=== PATIENT | male | born 1995 | race Caucasian/White ===

== ENCOUNTER → 2017-12-24 13:49 | Outpatient (CLI) | payer MEDICAID, SELFPAY ==
[2017-12-24 15:23] LABS: BUN 10 mg/dL (7-18); Creatinine, Serum 0.92 mg/dL (0.70-1.30); EST Glomerular Filtration Rate 106 mL/min (>60); Est Glom Filt Rate - Afr Amer 128 mL/min (>60)
== END ==
PROVIDERS: Family Provider Family Medicine; PCP Family Medicine; Visit Provider Psychiatry & Neurology Neurology
DX: G43.119 Migraine with aura, intractable, without status migrainosus (principal)
CPT/HCPCS: 36415; 82565; 84520

== ENCOUNTER → 2017-12-29 13:30 | Outpatient (CLI) | payer MEDICAID, SELFPAY ==
[2017-12-29 13:32] LABS: Red Blood Cells-Urine 0 SEEN /hpf (0-5); Squamous Epithelial Cells - UA 0 SEEN /hpf (0-5)
[2017-12-29 16:33] LABS: Color, Urine Yellow (Yellow); Glucose, Dipstick Normal (Normal); Ketone-Dipstick Negative (Negative); Leukocyte Esterase-Dipstick 25 /ul (Negative); Nitrite-Dipstick Negative (Negative); Occult Blood-Urine Negative /ul (Negative); Protein-Dipstick 15 mg/dl (Negative); Specific Gravity, Urine 1.025 (1.002-1.030); Urine Bilirubin Dipstick Negative (Negative); Urine Clarity Clear (Clear); Urine Urobilinogen 1 mg/dl (Normal)
[2017-12-29 16:44] LABS: Bacteria 1+ /hpf (None Seen); Calcium Oxalate Crystals Ur 2+ /hpf (<or=2+); Mucous, Urine 2+ /hpf (<or=2+); White Blood Cells 0-5 SEEN /hpf (0-5)
[2017-12-29 20:56] LABS: Chlamydia Trachomatis by PCR Negative (Negative); Neisserai gonorrhoeae by PCR Negative (Negative); Probe Check PASS; Sample Adequacy Control PASS; Specimen Processing Control PASS
== END ==
PROVIDERS: Family Provider Family Medicine; PCP Family Medicine; Visit Provider Family Medicine
DX: N34.2 Other urethritis (principal)
CPT/HCPCS: 81001; 87077; 87086; 87088; 87186; 87491; 87591

== ENCOUNTER → 2018-03-02 13:11 | Outpatient (CLI) | payer MEDICAID, SELFPAY ==
[2018-03-02 15:59] LABS: BUN 11 mg/dL (7-18); EST Glomerular Filtration Rate 109 mL/min (>60); Est Glom Filt Rate - Afr Amer 132 mL/min (>60)
== END ==
PROVIDERS: Family Provider Family Medicine; PCP Family Medicine; Visit Provider Psychiatry & Neurology Neurology
DX: G91.9 Hydrocephalus, unspecified (principal)
CPT/HCPCS: 36415; 82565; 84520

== ENCOUNTER → 2018-04-08 11:03 | Outpatient (CLI) | payer MEDICAID, SELFPAY ==
--- OUTSIDE RECORDS SUMMARY | 2018-05-25 03:40 | XMS RPT_ITS ---
:1995 Author Organization OHIP Support Name Relationship Address Phone ЕКАТЕРИНАEMILI VANEGASNDA Unavailable Unavailable + ALEK BRITO Unavailable Unavailable + ROSIISHROMINA DALE Unavailable Unavailable Unavailable WENDI BRITO/ALEK Unavailable [address] [place] [address] UE Unavailable Unavailable Unavailable ALEK BRITO Unavailable Unavailable + ALEK BRITO Unavailable Unavailable + ЕКАТЕРИНАROMINA DALE Unavailable Unavailable Unavailable WENDI BRITO/ALEK Unavailable [address] + [address] [place] [address] UE Unavailable Unavailable Unavailable ALEK BRITO Unavailable Unavailable + ALEK BRITO Unavailable Unavailable + ЕКАТЕРИНАROMINA DALE Unavailable Unavailable Unavailable ALEK BRITO Unavailable Unavailable + ALEK BRITO Unavailable Unavailable + ЕКАТЕРИНАROMINA DALE Unavailable Unavailable Unavailable WENDI BRITO/ALEK Unavailable [address] + [address] [place] [address] UE Unavailable Unavailable Unavailable WENDI BRITO/ALEK Unavailable [address] + [address] [place] [address] UE Unavailable Unavailable Unavailable WENDI BRITO/ALEK Unavailable [address] + [address] [place] [address] UE Unavailable Unavailable Unavailable AMY BRITO Unavailable Unavailable Unavailable ALEK BRITO Unavailable Unavailable Unavailable ALEK BRITO Unavailable Unavailable Unavailable BOUGHMAN, AMY Unavailable Unavailable Unavailable BOUGHMAN, ALEK Unavailable Unavailable Unavailable BOUGHMAN, ALEK Unavailable Unavailable Unavailable Care Team Providers Name Role Phone JUAN ALBERTO LINDQUIST Attending Unavailable JUAN ALBERTO LINDQUIST Referring Unavailable KIRIT, NUNO Primary Care Unavailable Kenyetta Caldwell Attending Unavailable PROVIDER, UNKNOWN Referring Unavailable Kirit, Nuno Primary Care Unavailable Kenyetta Caldwell Attending Unavailable Kenyetta Caldwell Referring Unavailable Kirit, Nuno Primary Care Unavailable Kirit, Nuno Attending Unavailable Kirit, Nuno Primary Care Unavailable Kirit, Nuno Attending Unavailable Kirit, Nuno Primary Care Unavailable Kirit, Nuno Primary Care Unavailable Tigist Perez Attending Unavailable Kenyetta Caldwell Attending Unavailable Kirit, Nuno Primary Care Unavailable JUAN ALBERTO LINDQUIST Attending Unavailable JUAN ALBERTO LINDQUIST Referring Unavailable KENYETTA CALDWELL MD, JR. Attending Unavailable KIRIT, NUNO Primary Care Unavailable KENYETTA CALDWELL MD, JR. Attending Unavailable KIRIT, NUNO Primary Care Unavailable CARMEN TRIMBLE Attending Unavailable KENYETTA CALDWELL JR. Referring Unavailable KIRIT, NUNO [place] Primary [facility] Unavailable CARMEN TRIMBLE Attending Unavailable CARMEN TRIMBLE Referring Unavailable KIRIT, NUNO A Primary Care Unavailable CARMEN TRIMBLE Attending Unavailable CARMEN TRIMBLE Referring Unavailable KIRIT, NUNO A Primary Care Unavailable EDILBERTO MILTON Attending Unavailable EDILBERTO MILTON Referring Unavailable KIRIT, NUNO A Primary Care Unavailable JUAN ALBERTO LINDQUIST Referring Unavailable CEDRICK MELCHOR (OD) Attending Unavailable CEDRICK MELCHOR (OD) Attending Unavailable YOLANDA JACOBS Attending Unavailable NUNO BETH Primary Care Unavailable NUNO BETH Admitting Unavailable YOLANDA JACOBS Attending Unavailable KIRIT NUNO ARIANA Referring Unavailable KIRIT, NUNO ARIANA Primary Care Unavailable UNKNOWN, PROVIDER Attending Unavailable Kirit, Nuno A Primary Care Unavailable PROBLEMS PROBLEMS DATE TYPE CONDITION / CODE ATTENDING STATUS SOURCE 05/02/2018 Admitting Compression of Jay MILTON [facility] diagnosis brain / EDILBERTO [employer] G93.5(ICD-10) [facility] Repository 04/08/2018 Unknown N39.0 - Urinary Nuno Beth Active [place] tract infection, Community site not specified Hospital / N39.0(ICD-10) Repository 03/07/2018 Admitting Other specified Kenyetta Caldwell Active [facility] Diagnosis disorders of brain System / G93.89(ICD-10) Repository 03/07/2018 Admitting Hydrocephalus, Kenyetta Caldwell Active [facility] Diagnosis unspecified / System G91.9(ICD-10) Repository 12/24/2017 Unknown G43.119 - Migraine Kenyetta Caldwell Active [place] with aura, [facility] Hospital without status Repository migrainosus / G43.119(ICD-10) 11/18/2017 Admitting [facility] diagnosis giddiness / WOLODYM[place] Three R42(ICD-10) Repository 11/18/2017 Admitting Morbid (severe) YOLANDA JACOBS Active [facility] diagnosis obesity due to WOLODYMYR Three excess calories / Repository E66.01(ICD-10) 12/20/2014 Active Essential JUAN ALBERTO LINDQUIST Active [place] [facility] Other hypertension / [place] I10(ICD-10) Repository 05/25/2017 Active 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 E Clinic Other / Q24.4(ICD-10) [place] Repository 12/20/2014 Admitting Unknown / JUAN ALBERTO LINDQUIST Active [facility] diagnosis UNK(Unknown) Health System Repository PROCEDURES PROCEDURES No Procedure Records FoundRESULTS RESULTS 12 LEAD ELECTROCARDIOGRAM Observed: 04/25/2018 Status: F Source: [place] 1:24 PM [facility] REPOSITORY [facility] Cardiovascular Services [address] [place] [address] 12 Lead EKG 04/20/18 1558 MR#: [id number] Acct: [id number] Name: DALE BRITO Rep #: [id number] : 1995 23 From: Madhav Ba MD Attending Dr: Status: DEP ER Ordering Dr: Tigist Perez MD Date: 04/20/18 Location: ED Sex: M C Admitted: Test Reason : CP Blood Pressure : / mmHG Vent. Rate : 076 BPM Atrial Rate : 076 BPM P-R Int : 186 ms QRS Dur : 154 ms QT Int : 410 ms P-R-T Axes : 023 006 162 degrees QTc Int : 461 ms Normal sinus rhythm Left bundle branch block Abnormal ECG Confirmed by JESENIA IBARRA, MADHAV ([id number]), digital editor ADILSON ALCAZAR ([id number]) on 04/25/2018 1:24:07 PM Referred By: LD Confirmed By:MADHAV BA MD 04/25/18 1324 Date Madhav Ba MD CC: Tigist Perez MD; Nuno Beth MD Signed 12 LEAD ELECTROCARDIOGRAM Observed: 04/25/2018 Status: F Source: [place] 1:09 PM [facility] Cardiovascular Services [address] [place] [address] 12 Lead EKG 04/20/18 1549 MR#: [id number] Acct: [id number] Name: DALE BRITO Rep #: [id number] : 1995 23 From: Madhav Ba MD Attending Dr: Status: DEP ER Ordering Dr: Tigist Perez MD Date: 04/20/18 Location: ED Sex: M C Admitted: Test Reason : CP Blood Pressure : / mmHG Vent. Rate : 079 BPM Atrial Rate : 079 BPM P-R Int : 184 ms QRS Dur : 156 ms QT Int : 410 ms P-R-T Axes : 032 006 157 degrees QTc Int : 470 ms Normal sinus rhythm Left bundle branch block Abnormal ECG Confirmed by JESENIA IBARRA, MADHAV ([id number]), digital editor ADILSON ALCAZAR ([id number]) on 04/25/2018 1:09:19 PM Referred By: Confirmed By:MADHAV BA MD 04/25/18 1309 Date Madhav Ba MD CC: Tigist Perez MD; Nuno Beth MD Signed EMERGENCY DEPARTMENT Observed: 04/21/2018 Status: F Source: [place] SUMMARY 12:15 AM [facility] Medical Records Department [address] [place] [address] Emergency Department Summary 04/20/18 1602 MR#: [id number] Acct: [id number] Name: DALE BRITO Rep #: [id number] : 1995 23 From: Tigist Perez MD PCP: Nuno Beth MD Status: DEP ER - ER Visit Summary Date of Service: 04/20/18 Chief Complaint: Chest pain History of Present Illness: The patient is a 23 M who presents for 3 days of substernal chest pain that waxed and wanes in intensity. Pain is described as burning. It is currently mild. Patient has had 2 weeks of fatigue, cough, and dizziness. On April 08 he was placed on Levaquin, once daily for 2 weeks by his primary care doctor. He has had no improvement. Today he has had hemoptysis, which he describes as reddish small masses that he is coughing up. He denies fever, rhinorrhea, congestion, headache, abdominal pain, nausea or vomiting, back pain. No radiation of his pain. He has a history of hypertension, Chiari malformation, open heart surgery at age 1 and a years for ventricular septal defect. Physical Examination: Vital signs: afebrile, hemodynamically stable, no hypoxia on room air General: well nourished, well developed,BMI of 65, in no distress Skin: warm, dry, no rash, no pallor HEENT: normocephalic and atraumatic; PERRL, EOMI, moist mucous membranes Cardiovascular: regular rate and rhythm without murmurs, nonpitting peripheral edema, 2+ pulses all distal extremities Respiratory: Mild increased work of breathing, lungs are clear to auscultation bilaterally, no rales, rhonchi or wheezing, frequent cough Abdominal: Abdomen is soft, nontender with normoactive bowel sounds, no guarding or rebound, no masses MSK: Moves all extremities, no deformities, normal strength Neuro: Awake and alert, oriented 4. No facial droop, sensation and motor function intact and symmetric Test Results: Abnormal Lab Results WBC 11.0 RBC 5.33 Clinical Impression(s) from Imaging Studies Chest X-Ray 04/20/18 17:10 IMPRESSION: No acute pulmonary process Electronically Signed: Rhys Leija MD at 17:55 EST , Service support , Medications Given Discontinued Medications Aspirin (Aspirin, Baby) 324 mg PO X1 STA Stop: 04/20/18 16:01 Last Admin: 04/20/18 16:09 Dose: 324 mg Sodium Chloride () 1,000 mls @ 250 mls/hr IV .Q4H [facility] Last Admin: 04/20/18 16:09 Dose: 250 mls/hr Nitroglycerin (Nitrostat) 0.4 mg SUBLINGUAL Q5M SHAQ Stop: 04/20/18 16:11 Last Admin: 04/20/18 17:42 Dose: Not Given Admin: 04/20/18 17:42 Dose: Not Given Admin: 04/20/18 17:41 Dose: Not Given Prednisone () 60 mg PO X1 ONE Stop: 04/20/18 19:48 Last Admin: 04/20/18 19:59 Dose: 60 mg Emergency Department Course and Treatment: Patient has complaints most consistent with a respiratory illness, however he is now having the chest pain and does have a cardiac history. Thus chest pain workup was performed. EKG showed a left bundle branch block with no ischemic changes per Sgarbossa criteria. He was consistent with patient's prior EKGs. Troponin negative. D-dimer was negative as well. No leukocytosis. No electrolyte derangements. Chest x-ray showed no sign of infiltrate, effusion or pulmonary edema. Patient did receive aspirin upon initial presentation was given nitro per chest pain protocol. He had no change in his discomfort. Patient is already on antibiotics, and with no improvement it is unlikely this is bacterial. Patient was started on prednisone. He is well- appearing, no tachycardia, no tachypnea, no hypoxia. He is to follow-up with his primary care doctor if he continues to have symptoms. Treatment Plan: [] Disposition: [] Impression: Persistent cough, pleuritic chest pain, respiratory infection This note was generated with INTTRA dictation software. It may contain incorrect words, spelling, and punctuation that were not noted in review of the chart prior to signing ED Disposition - Plan for ED Patient: Disposition: Home or Assisted Living Chief Complaint: Chest Pain Instructions: ED Cough Chronic Cause Unkn, ED Chest Pain Atypical Unkn Cause Prescriptions: RX: Prednisone [Deltasone] 60 mg PO DAILY #15 tab Referrals: Nuno Beth MD [Primary Care Provider] - 3-5 Days Additional Instructions: Continue the antibiotic you were given by your family doctor. Take the prednisone once daily as prescribed. Follow-up with your family doctor for another evaluation in 3-5 days, especially if your cough is not improving. Use [id number] pain medication as needed for the chest discomfort. If you have any worsening of your condition or any new concerning symptoms, please return immediately to the emergency department for another evaluation. What to do if you have Problems For any increased pain, shortness of breath, bleeding, nausea or vomiting, chest pain, or any unexpected problems, contact your Primary Care Provider. Call [employer] [facility] ([phone]) or report to the closest Emergency Room. Call 911 if necessary. 04/21/18 0015 <Electronically signed by Tigist Perez MD> Date Tigist Perez MD Cosigner Signature (If Indicated): Date CC: Nuno Beth MD DISCHARGE INSTRUCTION Observed: 04/20/2018 Status: F Source: [place] 10:57 PM [facility] REPOSITORY [facility] Medical Records Department [address] [place] [address] Discharge Instruction 04/20/181947 MR#: [id number] Acct: [id number] Name: DALE BRITO Rep #: [id number] : 1995 23 From: Tigist Perez MD PCP: Nuno Beth MD Status: [facility] ER ED Disposition - Plan for ED Patient: Disposition: Home or Assisted Living Chief Complaint: Chest Pain Instructions: ED Chest Pain Atypical Unkn Cause, ED Cough Chronic Cause Unkn Prescriptions: Prednisone [Deltasone] 60 mg PO DAILY #15 tab Referrals: Nuno Beth MD [Primary Care Provider] - 3-5 Days Additional Instructions: Continue the antibiotic you were given by your family doctor. Take the prednisone once daily as prescribed. Follow-up with your family doctor for another evaluation in 3-5 days, especially if your cough is not improving. Use uxmz-aew-ocjscji pain medication as needed for the chest discomfort. If you have any worsening of your condition or any new concerning symptoms, please return immediately to the emergency department for another evaluation. What to do if you have Problems For any increased pain, shortness of breath, bleeding, nausea or vomiting, chest pain, or any unexpected problems, contact your Primary Care Provider. Call [employer] [facility] ([phone]) or report to the closest Emergency Room. Call 911 if necessary. 04/20/18 0533 <Electronically signed by Tigist Perez MD> Date Tigist Perez MD Cosigner Signature (If Indicated): Date CC: Nuno Beth MD CHEST PA AND LATERAL Observed: 04/20/2018 Status: F Source: [place] 4:02 PM [facility] REPOSITORY [facility] Imaging Services [address] [place] [id number] Chest PA and Lateral MR#: [id number] Acct: [id number] Name: DALE BRITO Rep #: [id number] : 1995 M 23 From: Adelso Leija MD PCP: Nuno Beth MD Status: REG ER Study: Chest PA and Lateral Date of Exam: 04/20/18 Exam# [id number] Ordering Dr: Tigist Perez MD STUDY: X-RAY CHEST REASON FOR EXAM: Male, 23 years old. Chest pain, obesity TECHNIQUE: 2 PA and lateral views of the chest. COMPARISON: 2014 FINDINGS: EKG leads overlie the chest The lungs are clear and expanded. There is no demonstrated pleural abnormality. Sternal cerclage wires are present from a prior sternotomy. Normal mediastinum and hever. Normal visualized pulmonary arteries. Normal visualized aortic arch and descending thoracic aorta. Normal visualized thoracic spine. Normal visualized ribs, clavicles, and shoulders. There is no demonstrated abnormality of the visualized soft tissue structures of the upper abdomen. RAD/Chest PA and Lateral IMPRESSION: No acute pulmonary process Electronically Signed: Rhys Leija MD at 17:55 EST , Service support , CC: Tigist Perez MD; Nuno Beth MD Astronomy Professor: Signed BASIC METABOLIC Collected: 04/20/2018 Status: F Source: [place] PROFILE ([facility]) 3:55 PM [facility] REPOSITORY TYPE CODE TESTS RESULT OUT OF RANGE REFERENCE UNITS LAB L501.0100 74-106 mg/dL Normal GLU 96 Result Comment: Please note revised GLUCOSE reference range effective 2017. LAB L501.1000 7-18 mg/dL High BUN 21 LAB L501.1100 0.70-1.30 mg/dL Normal CREAT,SERUM 0.82 Result Comment: The validity of the calculated GFR AND GFRAA in patients over 70 years has not been determined. Clinical correlation is essential. LAB L501.1110 >60 mL/min Normal EST GFR 121 Result Comment: Non- GFR Calc LAB L501.1115 >60 mL/min Normal EST GFR - AA 147 Result Comment: GFR Calc LAB L501.1255 ml/min Normal Estimated CRCL 133.23 LAB L501.1300 10-20 RATIO High BUN/CRE 25.5 LAB L501.2200 8.5-10 mg/dL .1 CA Normal 8.9 LAB L501.5300 136-14 mmol/L 5 NA Normal 140 LAB L501.5600 3.5-5. mmol/L 1 K Normal 3.9 LAB L501.5900 98-107 mmol/L High CL 110 LAB L501.6100 21.0-3 mmol/L 2.0 CO2 Normal 21.0 LAB L501.6200 5-15 GAP Normal 9 Performed By: #### L500.2500, L501.4010 #### [facility] [address] [place], [place], [id number] TROPONIN-I Collected: 04/20/2018 Status: F Source: [place] 3:55 PM [facility] REPOSITORY TYPE CODE TESTS RESULT OUT OF RANGE REFERENCE UNITS LAB L501.4010 <0.045 ng/mL Normal < 0.015 TROPONIN-I Result Comment: TROPONIN-I EXPECTED VALUES <0.045 Negative 0.045 - 0.590 Consistent with Cardiac Damage > OR = 0.600 Critical Value Not every elevated troponin is indicative of MN. These values should be used with clinical judgement in examining the patient's clinical picture for diagnosis. To establish a diagnosis of MN versus myocardial injury, there must be a demonstrated rise and/or fall in the troponin values, in addition to ischemic symptoms, EKG changes, new regional wall motion abnormality, and/or angiographical evidence. PLEASE NOTE: REFERENCE RANGES EDITED 17 Performed By: #### L500.2500, L501.4010 #### [facility] [address] [place], [place], [address] CBC W/DIFF, AUTOMATED Collected: 04/20/2018 Status: F Source: [place] 3:55 [facility] [place] TYPE CODE TESTS RESULT OUT OF RANGE REFERENCE UNITS LAB L100.1000 4.4-11.0 K/mm3 Normal WBC 11.0 LAB L100.1200 4.6-6.2 M/mm3 Normal RBC 5.33 LAB L100.1300 13.0-16.5 g/dl Normal HGB 14.8 LAB L100.1400 40-54 % Normal HCT 43.8 LAB L100.1500 80-94 fL Normal MCV 82.2 LAB L100.1600 27.0-32.0 pg Normal MCH 27.8 LAB L100.1700 32-36 g/gl Normal MCHC 33.8 LAB L100.1810 11.6-14.6 % Normal RDW CV 13.0 LAB L100.1820 35.1-43.9 fl Normal RDW SD 39.0 LAB L100.1900 150-450 K/mm3 Normal PLT 250 LAB L100.2000 6.2-12.0 fl Normal MPV 8.9 LAB L100.2100 47-70 % Normal NEUT% 56.7 LAB L100.2200 19-41 % Normal LY% 33.8 LAB L100.2300 0-10 % Normal MONO% 8.1 LAB L100.2400 0-5 % Normal EO% 0.7 LAB L100.2500 0-1 % Normal BASO% 0.4 LAB L100.2550 0.0-0.9 % Normal IM GRAN % 0.300 Result Comment: IG% - Immature Granulocytes (promyelocytes, myelocytes and metamyelocytes) > 1% indicates that a LEFT SHIFT is Present. LAB L100.2620 2.0-7.7 X10 3/uL Normal Absolute Neut 6.3 LAB L100.2720 0.83-4.51 X10 3/ul Normal Absolute Lymph 3.73 Performed By: #### L100.0100 #### [facility] [address] [place], [place], [id number] PROTHROMBIN TIME W/INR Collected: 04/20/2018 Status: F Source: [place] 3:55 PM [facility] REPOSITORY TYPE CODE TESTS RESULT OUT OF RANGE REFERENCE UNITS LAB L300.4150 11.7-14.9 SECONDS Normal PROTIME 13.4 LAB L300.4200 Normal INR 1.0 Performed By: #### L300.3900, L300.4310, L300.8000 #### [facility] [address] [facility] [place], [address] PARTIAL THROMBOPLAST Collected: 04/20/2018 Status: F Source: [place] TIME 3:55 PM [facility] REPOSITORY TYPE CODE TESTS RESULT OUT OF RANGE REFERENCE UNITS LAB L300.4310 24.1-36.2 Seconds Normal PTT 27.1 Performed By: #### L300.3900, L300.4310, L300.8000 #### [facility] [address] [place], [address] D-DIMER QUANTITATIVE Collected: 04/20/2018 Status: F Source: [place] (DVT/PE) 3:55 PM [facility] REPOSITORY TYPE CODE TESTS RESULT OUT OF RANGE REFERENCE UNITS LAB L300.8000 0.27-0.49 FEU/ug/m Low D-DIMER < 0.27 QUANT Result Comment: NORMAL D-Dimer level (<0.50) indicates no DVT or PE. NORMAL D-Dimer level (<0.50) indicates no DVT or PE. Performed By: #### L300.3900, L300.4310, L300.8000 #### [facility] [address] [place], [address] Observed: 04/08/2018 Status: F Source: [place] CULTURE, URINE 11:04 AM [facility] REPOSITORY Urine Culture Culture exhibits no growth. Performed By: #### M100.0650 #### [facility] [address] [place], [address] MRI BRAIN W/ + W/O Observed: 03/07/2018 Status: F Source: [employer] CONTRAST 2:09 PM SYSTEM REPOSITORY Patient Name: DALE BRITO MRI Exam Date/Time 03/07/2018 13:53:14 EST Exam MRI Brain w/ + w/o Contrast Ordering Physician KENYETTA CALDWELL Accession Number [id number] CPT4 Codes 65595 () Reason For Exam hydrocephalus Report MRI BRAIN WITHOUT AND WITH CONTRAST: CLINICAL INDICATION: Hydrocephalus TECHNIQUE: Transaxial, sagittal and coronal T1, transaxial fast T2, FLAIR and gradient echo along with diffusion weighted imaging was performed through the brain. Post contrast transaxial and coronal T1 weighted sequences were performed following administration of 20ml gadolinium contrast. COMPARISON: None. FINDINGS: Somewhat limited by the patient's body habitus/positioning and motion. Ventricular system and Extra-axial spaces: Normal in size and morphology for the patient's age. No extracerebral cerebral collection with mass effect. Cerebral and cerebellar parenchyma: Normal land-white matter differentiation. No restricted diffusion. No evidence of intracranial hemorrhage. No enhancing mass or edema. Note is made of low-lying cerebellar tonsils consistent with a Chiari I malformation. Brainstem: Normal. Sella turcica and pituitary: Normal. Vascular system: Normal signal void is noted within the major intracranial vessels. Paranasal sinuses: There is mucosal thickening in both maxillary sinuses.. Mastoid air cells: Normal. Orbits: Normal. IMPRESSION: 1. No acute process. No mass, hemorrhage or edema. 2. Low-lying cerebellar tonsils consistent with a Chiari I malformation. Report Dictated on Workstation: [id number] Final Dictated: 03/07/2018 2:09 pm Dictating Physician: MD LYNN NICHOLAS Signed Date and Time: 03/07/2018 2:18 pm Signed by: MD LYNN NICHOLAS Transcribed Date and Time: 03/07/2018 2:09 BUN Collected: 03/02/2018 Status: F Source: [place] 1:14 PM [facility] REPOSITORY TYPE CODE TESTS RESULT OUT OF RANGE REFERENCE UNITS LAB L501.1000 7-18 mg/dL Normal BUN 11 Performed By: #### L501.1000, L501.1105 #### [facility] [address] [place], [address] SERUM CREATININE AND Collected: 03/02/2018 Status: F Source: [place] GFR 1:14 PM [facility] REPOSITORY TYPE CODE TESTS RESULT OUT OF RANGE REFERENCE UNITS LAB L501.1100 0.70-1.30 mg/dL Normal 0.90 CREAT,SERUM Result Comment: The validity of the calculated GFR AND GFRAA in patients over 70 years has not been determined. Clinical correlation is essential. LAB L501.1110 >60 mL/min Normal EST GFR 109 Result Comment: Non- GFR Calc LAB L501.1115 >60 mL/min Normal EST GFR - AA 132 Result Comment: GFR Calc Performed By: #### L501.1000, L501.1105 #### [facility] [address] 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 Vitreous floaters of both eyes - ICD9: 379.24, ICD10: H43.393 Patient was given both written and verbal information on flashes and floaters. Patient was instructed to call the office ([phone]) immediately upon noticing flashes of light, increase in floaters, or changes in vision. Cedrick Melchor, OD I have confirmed and edited as necessary the relevant ophthalmic history, review of systems, surgical history, and ophthalmological examination findings as obtained by the ophthalmic technical staff. I have seen and examined Dale Brito. I have discussed the examination findings, diagnosis, and treatment options with Dale Brito and/or his family. I have also reviewed and agree with the assessment and plan as stated above and agree with all its relevant components. I gave the patient the opportunity to ask questions about the findings, diagnosis, and treatment options. URINALYSIS, COMPLETE Collected: 12/29/2017 Status: F Source: LUCIA 1:31 PM [facility] REPOSITORY Order Comment: How was Urine Obtained? CLEAN CATCH TYPE CODE TESTS RESULT OUT OF RANGE REFERENCE UNITS LAB L400.3000 Yellow COLOR Normal Yellow LAB L400.3050 Clear Normal CLARITY Clear LAB L400.3200 Normal mg/dl Normal GLUCOSE, UR Normal LAB L400.3300 Negative mg/dL Normal BILIRUBIN URINE Negative LAB L400.3400 Negative mg/dl Normal KETONE UR Negative LAB L400.3465 1.002-1.030 Normal SP.GR. DIPSTX 1.025 LAB L400.3550 5.0 - 8.0 pH UR Normal 5.0 LAB L400.3600 Negative mg/dl High PROT 15 DIPSTX LAB L400.3700 Normal mg/dl High 1 UROBILI LAB L400.3750 Negative Normal NITRITE UR Negative LAB L400.3780 Negative /ul Normal OCCULT BLOOD-UR Negative LAB L400.3800 Negative /ul High LEUK 25 ESTERASE LAB L400.4050 0-5 /hpf WBC Normal 0-5 SEEN LAB L400.4100 0-5 /hpf 0 Normal RBC-UA SEEN LAB L400.4150 0-5 /hpf SQUAM 0 Normal EPI SEEN LAB L400.4300 None Seen /hpf 1+ Normal BACTERIA LAB L400.4350 <or=2+ /hpf 2+ Normal MUCUS, URINE LAB L400.4700 <or=2+ /hpf CA OX 2+ Normal CRYSTAL Performed By: #### L400.0001 #### [facility] [address] [place], [address] CT/NG [facility] BY PCR Collected: 12/29/2017 Status: F Source: [place] 1:31 PM [facility] REPOSITORY TYPE CODE TESTS RESULT OUT OF RANGE REFERENCE UNITS LAB L8200.2100 Negative Normal Chlam Negative Trac PCR LAB L8200.2200 Negative Normal NG by Negative PCR Performed By: #### L8200.2000 #### [facility] [address] [place], [address] Observed: 12/29/2017 Status: F Source: [place] CULTURE, URINE 1:31 PM [facility] REPOSITORY Urine Culture ORGANISM 1: Escherichia coli [place] Count 11,000-25,000 Escherichia coli: REACTION Amoxacillin/Clavulanic Acid $ 16 I Ampicillin $ >=32 R Ampicillin/Sulbactam $ 16 I Cefazolin $ <=4 S Cefepime $ <=1 S Ceftriaxone $ <=1 S Ciprofloxacin $ 0.5 S ESBL - Ertapenim $$$ <=0.5 S Gentamicin $ <=1 S Imipenem *NF <=0.25 S Levofloxacin $ 1 S Nitrofurantoin $ <=16 S Piperacillin/Tazobactam $$ <=4 S Tobramycin $ <=1 S Trimethoprim/Sulfametho $ <=20 S (NF) indicates non-formulary drug at [facility]. Approval by Infectious Disease Specialist required before non-formulary drugs may be ordered and/or dispensed. Performed By: #### M100.0650 #### [facility] [address] [place], [address] BUN Collected: 12/24/2017 Status: F Source: [place] 2:01 PM [facility] REPOSITORY TYPE CODE TESTS RESULT OUT OF RANGE REFERENCE UNITS LAB L501.1000 7-18 mg/dL Normal BUN 10 Performed By: #### L501.1000, L501.1105 #### [facility] [address] [place], [address] SERUM CREATININE AND Collected: 12/24/2017 Status: F Source: [place] GFR 2:01 PM [facility] REPOSITORY TYPE CODE TESTS RESULT OUT OF RANGE REFERENCE UNITS LAB L501.1100 0.70-1.30 mg/dL Normal 0.92 CREAT,SERUM Result Comment: The validity of the calculated GFR AND GFRAA in patients over 70 years has not been determined. Clinical correlation is essential. LAB L501.1110 >60 mL/min Normal EST GFR 106 Result Comment: Non- GFR Calc LAB L501.1115 >60 mL/min Normal EST GFR - AA 128 Result Comment: GFR Calc Performed By: #### L501.1000, L501.1105 #### [facility] [address] 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 Vitreous floaters of both eyes - ICD9: 379.24, ICD10: H43.393 Patient was given both written and verbal information on flashes and floaters. Patient was instructed to call the office ([phone]) immediately upon noticing flashes of light, increase in floaters, or changes in vision. Cedrick Melchor, PRECIOUS I have confirmed and edited as necessary the relevant ophthalmic history, review of systems, surgical history, and ophthalmological examination findings as obtained by the ophthalmic technical staff. I have seen and examined Dale Brito. I have discussed the examination findings, diagnosis, and treatment options with Dale Brito and/or his family. I have also reviewed and agree with the assessment and plan as stated above and agree with all its relevant components. I gave the patient the opportunity to ask questions about the findings, diagnosis, and treatment options. PROGRESS Observed: 05/25/2017 Status: COMPLETED Source: ALLEENE 1:38 PM [facility] REPOSITORY HNO ID: [id number] Author: Juan Alberto Lindquist Service: (none) Author Type: Physician Type: Progress Notes Filed: 05/25/2017 1:49 PM Note Text: PERTINENT CARDIAC HISTORY Subaortic stenosis - resection 1995 Morbid obesity HTN HL BETTY - CPAP DOLAN LBBB ADHERENCE TO GUIDELINES BEKA-I or ARB for HF with prior LVEF<40 (NQF 0081) - N/A ASA or Plavix for ASHD (NQF 0067) - N/A Beta perla for ASHD with prior MN or prior LVEF<40 (NQF 0070) - N/A Beta perla for HF with prior LVEF<40 (NQF 0083) - N/A BEKA-I or ARB for ASHD with DM or prior LVEF<40 (NQF 0066) - N/A Statin therapy for ASHD or FHL or DM - N/A BMI documented and plan if >25 (NQF 0421) - lifestyle recommendation form Tobacco use screening and referral (NQF 0028) - lifestyle recommendation form Recommendation for whole food, plant based diet - lifestyle recommendation form CLINICAL IMPRESSION/PLAN: Dale Brito has stable, but limited exercise tolerance. His chest pain syndrome is under good control. Blood pressure was borderline high today. I've requested that he have this checked in the home environment. His dose of diltiazem is relatively low and can easily be increased. He has achieved no significant weight loss over the last several years. If he wishes to pursue bariatric surgery, I recommend further risk stratification with pharmacologic nuclear stress test. I am unable to assess his exercise tolerance due to his inactivity. For follow-up of his residual membranous subaortic stenosis, he will undergo echocardiogram. TSH and lipid profile will be obtained. We will continue to follow him at annual intervals. He has been strongly advised to decrease his caloric intake and increase energy expenditure. Written and verbal health teaching given to patient, patient verbalizes understanding and agrees with treatment plan. This note was generated using INTTRA voice recognition system, and there may be some incorrect words, spellings, and punctuation that were not noted in checking the note before saving. DIAGNOSIS FOR VISIT: Subaortic stenosis with residual Hypertension Super morbid obesity HISTORY OF PRESENT ILLNESS Dale Brito is a 22-year-old gentleman with multiple cardiac issues, as noted above. He has a prior patient of Dr. Mishra. He is seen for follow-up. He was recently diagnosed with a Chiari malformation . He has not pursued bariatric surgery . He reports that his exercise tolerance has been stable. He is not walking on a regular basis. He's had no significant weight loss. He's had minimal chest discomfort since last visit. Breathing is improved since his inhaler has been changed. He's had no syncope, palpitations, TIAs, amaurosis or claudication. ALLERGIES: ALLERGIES Allergen Reactions - Phenobarbital Shortness of Breath - Penicillins Rash CURRENT OUTPATIENT MEDICATIONS: CARTIA XT 120 mg 24 hr capsule Take 1 capsule by mouth once daily. PAST MEDICAL HISTORY Diagnosis Date - Headache(784.0) - HTN (hypertension) - Pain in limb 06/26/2008 - PMH - PAST MEDICAL HISTORY OF Aortic Stenosis - PMH - PAST MEDICAL HISTORY OF Heart murmur - Seasonal allergies - Sleep apnea unable to use c-pap - Unspecified asthma(493.90) PAST SURGICAL HISTORY Procedure Laterality Date - PAST SURGICAL HISTORY OF 1994 Open heart, [facility], for Subaortic Stenosis - REMOVAL ADENOIDS,PRIMARY,<12 Y/O 2006 Adenoidectomy FAMILY HISTORY Problem Relation Age of Onset - Diabetes Father - Hypertension Father - Cancer Father smoker/ throat - Hypertension Mother - Coronary Artery Disease Maternal Grandfather [place] age 42, autopsy-proven - No Ocular Disease Other - gout [Other] [OTHER] Mother - headaches [Other] [OTHER] Brother - sleep apnea [Other] [OTHER] Brother - htn [Other] [OTHER] Brother Social History Marital status: Single Spouse name: Years of education: Number of children: Occupational 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 Respiratory: No productive cough. Cardiac: As noted above. GI: No melena. : No dysuria. Musculoskeletal: No myalgias. PHYSICAL EXAMINATION: S/he is alert and in no distress. VITAL SIGNS: BP 142/90 Pulse 70 Ht 5' 6 (1.68m) Wt 486 lb (220.4kg) BMI 78.48 kg/(m2). SHEENT: Skin is warm and dry. No xanthelasmas appreciated. Pharynx is benign. There is no oral cyanosis. Neck: supple. No adenopathy or thyroid enlargement. Chest: Clear to percussion and auscultation. Trachea is midline. Air entry is equal. There is no chest wall tenderness. Cardiac: Regular rhythm. Splitting of the second heart sound cannot be detected. PMI is nondisplaced. There is a soft systolic ejection murmur. No click is heard. Carotids are brisk without bruits. JVP is less than 10 cm. Abdomen: Morbid obesity precludes examination. There are no pulsatile masses or bruits. No liver enlargement. Bowel sounds are active. Extremities: 1 plus edema. Pulses are intact and symmetrical. No clubbing or cyanosis. No femoral bruits. Neurologic: Grossly normal motor and sensory. S/he is alert and oriented x4. EKG shows left bundle branch block. There is no significant change. Prior echo shows well-preserved LV function. There is mild fixed subaortic gradient. Prior Holter monitor showed no significant arrhythmia. Laboratory studies from [facility] showed normal renal function. Electronically Signed: Juan Alberto Lindquist MD May 25, 2017 1:38 PM CC:Nnuo Beth MD CNOV Observed: 05/25/2017 Status: COMPLETED Source: ALLEENE 1:00 PM [facility] REPOSITORY Office Visit (AGCARDWST) DALE BRITO ([id number]) 1995 M Date Time Provider Department 05/25/17 1:00 PM JUAN ALBERTO LINDQUIST AGCARDWSFlora During your visit today, we recorded the following information about you: Pulse Blood pressure Weight Height 70/minute 142/90 220.4 kg 1.676 m Juan Alberto Lindquist MD 05/25/2017 1:49 PM Signed PERTINENT CARDIAC HISTORY Subaortic stenosis - resection 1994 Morbid obesity HTN HL BETTY - CPAP DOLAN LBBB ADHERENCE TO GUIDELINES BEKA-I or ARB for HF with prior LVEFANDlt;40 (NQF 0081) - N/A ASA or Plavix for ASHD (NQF 0067) - N/A Beta perla for ASHD with prior MN or prior LVEFANDlt;40 (NQF 0070) - N/A Beta perla for HF with prior LVEFANDlt;40 (NQF 0083) - N/A BEKA-I or ARB for ASHD with DM or prior LVEFANDlt;40 (NQF 0066) - N/A Statin therapy for ASHD or FHL or DM - N/A BMI documented and plan if ANDgt;25 (NQF 0421) - lifestyle recommendation form Tobacco use screening and referral (NQF 0028) - lifestyle recommendation form Recommendation for whole food, plant based diet - lifestyle recommendation form CLINICAL IMPRESSION/PLAN: Dale Brito has stable, but limited exercise tolerance. His chest pain syndrome is under good control. Blood pressure was borderline high today. I've requested that he have this checked in the home environment. His dose of diltiazem is relatively low and can easily be increased. He has achieved no significant weight loss over the last several years. If he wishes to pursue bariatric surgery, I recommend further risk stratification with pharmacologic nuclear stress test. I am unable to assess his exercise tolerance due to his inactivity. For follow-up of his residual membranous subaortic stenosis, he will undergo echocardiogram. TSH and lipid profile will be obtained. We will continue to follow him at annual intervals. He has been strongly advised to decrease his caloric intake and increase energy expenditure. Written and verbal health teaching given to patient, patient verbalizes understanding and agrees with treatment plan. This note was generated using INTTRA voice recognition system, and there may be some incorrect words, spellings, and punctuation that were not noted in checking the note before saving. DIAGNOSIS FOR VISIT: Subaortic stenosis with residual Hypertension Super morbid obesity HISTORY OF PRESENT ILLNESS Dale Brito is a 22-year-old gentleman with multiple cardiac issues, as noted above. He has a prior patient of Dr. Mishra. He is seen for follow-up. He was recently diagnosed with a Chiari malformation . He has not pursued bariatric surgery . He reports that his exercise tolerance has been stable. He is not walking on a regular basis. He's had no significant weight loss. He's had minimal chest discomfort since last visit. Breathing is improved since his inhaler has been changed. He's had no syncope, palpitations, TIAs, amaurosis or claudication. ALLERGIES: ALLERGIES Allergen Reactions - Phenobarbital Shortness of Breath - Penicillins Rash CURRENT OUTPATIENT MEDICATIONS: CARTIA XT 120 mg 24 hr capsule Take 1 capsule by mouth once daily. PAST MEDICAL HISTORY Diagnosis Date - Headache(784.0) - HTN (hypertension) - Pain in limb 06/26/2008 - PMH - PAST MEDICAL HISTORY OF Aortic Stenosis - PMH - PAST MEDICAL HISTORY OF Heart murmur - Seasonal allergies - Sleep apnea unable to use c-pap - Unspecified asthma(493.90) PAST SURGICAL HISTORY Procedure Laterality Date - PAST SURGICAL HISTORY OF 1994 Open heart, [facility], for Subaortic Stenosis - REMOVAL ADENOIDS,PRIMARY,ANDlt;10 Y/O 2006 Adenoidectomy FAMILY HISTORY Problem Relation Age of Onset - Diabetes Father - Hypertension Father - Cancer Father smoker/ throat - Hypertension Mother - Coronary Artery Disease Maternal Grandfather [place] age 42, autopsy-proven - No Ocular Disease Other - gout [Other] [OTHER] Mother - headaches [Other] [OTHER] Brother - sleep apnea [Other] [OTHER] Brother - htn [Other] [OTHER] Brother Social History Marital status: Single Spouse name: Years of education: Number of children: Occupational 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 Respiratory: No productive cough. Cardiac: As noted above. GI: No melena. : No dysuria. Musculoskeletal: No myalgias. PHYSICAL EXAMINATION: S/he is alert and in no distress. VITAL SIGNS: BP 142/90 Pulse 70 Ht 5' 6ANDquot; (1.68m) Wt 486 lb (220.4kg) BMI 78.48 kg/(m2). SHEENT: Skin is warm and dry. No xanthelasmas appreciated. Pharynx is benign. There is no oral cyanosis. Neck: supple. No adenopathy or thyroid enlargement. Chest: Clear to percussion and auscultation. Trachea is midline. Air entry is equal. There is no chest wall tenderness. Cardiac: Regular rhythm. Splitting of the second heart sound cannot be detected. PMI is nondisplaced. There is a soft systolic ejection murmur. No click is heard. Carotids are brisk without bruits. JVP is less than 10 cm. Abdomen: Morbid obesity precludes examination. There are no pulsatile masses or bruits. No liver enlargement. Bowel sounds are active. Extremities: 1 plus edema. Pulses are intact and symmetrical. No clubbing or cyanosis. No femoral bruits. Neurologic: Grossly normal motor and sensory. S/he is alert and oriented x4. EKG shows left bundle branch block. There is no significant change. Prior echo shows well-preserved LV function. There is mild fixed subaortic gradient. Prior Holter monitor showed no significant arrhythmia. Laboratory studies from [facility] showed normal renal function. Electronically Signed: Juan Alberto Lindquist MD May 25, 2017 1:38 PM CC:Nuno Beth MD Referring Provider: JUAN ALBERTO LINDQUIST [[id number]] Allergies As of Date: 05/25/2017 Noted Allergy Reaction PHENOBARBITAL 04/04/2008 12 - Shortness of Breath PENICILLINS 04/04/2008 2 - Rash Date Reviewed: 05/25/2017 Reviewed by: Bobby (Rn) EULALIO Davenport - Fully Assessed Reason for Visit: New Patient [172] Primary Visit Diagnosis:Subaortic stenosis [Q24.4] Other Visit Diagnosis:Essential hypertension [I10] Order(s):ECG B/O W INTERP (MED OFFICE) [ECG06] Order #: [id number] CARTIA XT 120 mg 24 hr capsuleTake 1 capsule by mouth once daily.Disp: Rfl: ECHO [327764] Order #: [id number]: 1 FUTURE TSH BLD [SQTSH] Order #: [id number] FUTURE LIPID PANEL BASIC [SQLIPB] Order #: [id number] FUTURE Prescriptions as of 05/25/2017 Sig: CARTIA XT 120 MG CAPSULE,EXTE* Take 1 capsule by mouth once * Problem List As Of Date 05/25/2017 Noted Resolved Morbid obesity [E66.01] INVALID FOR* Priority: B More... MEMBRANOUS SUB-AORTIC STENOSIS [I35.9] INVALID FOR* Priority: A More... More... Depressive disorder, not elsewhere classified [*INVALID FOR* Priority: A More... Family history of other cardiovascular diseases*INVALID FOR* Priority: F More... Problems with learning [F81.9] INVALID FOR* Priority: B More... LBBB (left bundle branch block) [I44.7] INVALID FOR* Priority: A More... Headache(784.0) [R51] INVALID FOR* Priority: A Dyslipidemia (high LDL; low HDL) [E78.5] INVALID FOR* Priority: A BETTY (obstructive sleep apnea) [G47.33] INVALID FOR* Priority: B More... Pseudotumor cerebri [G93.2] INVALID FOR* Priority: B SVT (supraventricular tachycardia) (HCC) [I47.1]INVALID FOR* Priority: A More... Cephalalgia [R51] INVALID FOR* Essential hypertension [I10] INVALID FOR* Priority: A Vitreous floaters of both eyes [H43.393] INVALID FOR* Morbid obesity with BMI of 60.0-69.9, adult (HC*INVALID FOR* Congenital anomaly of optic disc [Q14.2] INVALID FOR* Prescriptions ordered this encounter Disp Refills Start End CARTIA XT 120 MG CAPSULE,EXTENDED RE* 05/25/2017 Class: Med Update Route: ORAL Sig: Take 1 capsule by mouth once daily. Medications Discontinued During This Encounter fexofenadine (TRISH) 180 mg tablet 11/11/2016 05/25/2017 Class: Historical Med Sig: Disc: Reason for discontinue is not on file. ranitidine (ZANTAC) 150 mg tablet 12/01/2016 05/25/2017 Class: Historical Med Sig: Disc: Reason for discontinue is not on file. ondansetron orally disintegrating (Z* 12/01/2016 05/25/2017 Class: Historical Med Sig: Disc: Reason for discontinue is not on file. CARTIA XT 120 mg 24 hr capsule 11/11/2016 05/25/2017 Class: Historical Med Sig: Disc: Reason for discontinue is not on file. Classic SmartForms filed during this visit: Extended Vitals Encounter Status:Closed by JUAN ALBERTO LINDQUIST MD on 05/25/17 ALLERGIES ALLERGIES DATE TYPE / NAME / CODE REACTION SEVERITY SOURCE CODE 11/18/[address]: IODINATED [facility] Class/4195 CONTRAST- ORAL AND Three Repository 77285(SNOM IV DYE ED CT) 04/27/2017 Drug Penicillins/[id number] Hives Unknown [place] Allergy/41 476(RXNORM) Community 0962190([facility] OMED CT) Repository 04/27/2017 Drug phenobarbital/F0060 Shortness of Unknown [place] Allergy/41 82560(RXNORM) breath Community 1979880( Hospital OMED CT) Repository 04/04/2008 DRUG PHENOBARBITAL Sob High [facility] INGREDI/41 Three Repository 0913621( OMED CT) 04/04/2008 Drug PENICILLINS Rash Low [facility] Class/4195 Three Repository 79826(SNOM ED CT) 04/04/2008 DRUG PHENOBARBITAL SHORTNESS OF Med [facility] INGREDI/41 Other [place] 7990496( Repository OMED CT) 04/04/2008 Drug PENICILLINS RASH [facility] Class/4195 Other [place] 45418(SNOM Repository ED CT) NG/1514157 PHENOBARBITAL [facility] 06(SNOMED [facility] CT) Repository NG/5509387 PENICILLINS [facility] 06(SNOMED [facility] CT) Repository ENCOUNTERS ENCOUNTERS ADMIT/DISCHARGE ACCOUNT NUMBER ADMITTING ENCOUNTER LOCATION SOURCE CLASS 05/02/2018 [id number] Ambulatory Building:[facility] Repository 04/20/2018/04/20/20 [id number] Emergency [address] ding:ED Repository 04/20/2018 [id number] Ambulatory Building:[facility] Repository 04/08/2018 [id number] Ambulatory [facility] ding:BFHLAB Repository 04/06/2018 [id number] Ambulatory Building:[facility] Repository 03/07/2018 [id number] Ambulatory [facility] Repository 03/07/2018 [id number] Ambulatory Building:[facility] Repository 03/02/2018 [id number] Ambulatory [facility] ding:BFHLAB Repository 12/31/2017 [id number] Ambulatory [facility] Repository ng:H.MRI 12/30/2017/01/04/20 [id number] Ambulatory [address] Main [place] Repository 12/29/2017 [id number] Ambulatory [facility] ding:BFHLAB Repository 12/24/2017 [id number] Ambulatory [facility] ding:LAB Repository 11/18/2017/11/19/19 [id number] KIRIT, Ambulatory Building:[address] NEUROSURGGLE Three SSNER Repository 08/27/2017 [id number] Ambulatory Building:[facility] NEUROLOGYGLE Three [facility]NER Repository 08/05/2017/08/06/19 [id number] Ambulatory MATEO Mateo [address] [place] [address] ding:[facility] Repository 06/29/2017/07/01/19 [id number] Ambulatory [address] Repository 06/17/2017/06/17/19 [id number] Ambulatory MATEO Mateo [address] [place] [address] [facility] 05/25/2017/05/27/19 [id number] Ambulatory [address] Main [place] Repository 05/25/2017/05/25/19 [id number] Ambulatory [address] Other [place] Repository 05/25/2017/05/25/19 [id number] Ambulatory [address] MEDICAL Repository CENTERBuildi ng:CAGWS PAYERS PAYERS ENCOUNTER GUARANTOR PAYER SUBSCRIBER SOURCE 05/02/2018 DALE Primary DALE [facility] BOUGHMANDOB: [facility] [place] [id number] [facility] Number: [id number] [id number] [address] [address]Ohv: ([phone]) Date:4917-30-09Pzgp [place] [address]Eev: Repository [phone] () Name:JAVED () 04/20/2018 DALE BRIANNA Primary [id number] SR [facility]: [address] Number: [id number] [id number] Repository [address]Dmj: ([phone]) Date:2018-04-20P O [phone] () [address]ATTN: [place] [address]XQ: 04/20/2018 Secondary NOT GIVENUNK [place] Insurance:SELF PAY [facility] Number: Effective Repository Date:2018-04-20 04/20/2018 DALE Primary DALE [facility] BOUGHMANDOB: Insurance:CARESOURCEP [place]: [place] [id number] BOX olicy Number: [id number] [id number] [address] [address]Rbz: [phone]) Date:9518-62-80[place]vyc [place] [address]Ybc: Repository [phone] () Name:JAVED () 04/08/2018 DALE E Primary DALE E [place] [facility] O Box Insurance:CARESOURCEP [facility] [address] Number: [id number] [address]Qox: 330 [id number] Repository [phone] () Date:2018-04-08P [address]ATTN: [place] [address]VN: 04/08/2018 Secondary NOT GIVENUNK [place] Insurance:SELF PAY [facility] Number: Effective Repository Date:2018-04-08 04/06/2018 DALE Primary DALE [facility] BOUGHMANDOB: Insurance:CARESOURCEP [place]: [place] [id number] BOX olic Number: [id number] [id number] [address] [address]Sfb: ([phone]) Date:0378-92-30[place] [address]Xez: Repository [phone] () Name:JAVED () 03/07/2018 Dale Primary [facility] BoughmanDOB: Insurance:CareSourceP BoughmanDOB: System 1995[address] Number: [id number] [address]ository [address], Effective Date: [place] [address]Fim: () 03/07/2018 DALE Primary DALE [facility]: Insurance:[facility]IDRussell[facility] HospitalOB: [place] [id number] BOX icy Number: [id number] [address] [id number] [address] [address]Gzq: ([phone]) Date:Plan Name:[place] [id number]: Repository [phone] (HP) (HP) 03/02/2018 DALE E Primary DALE E Lucia BOUGHMANP O Box Insurance:CARESOURC BOUNIVERSITY [facility] CENTEROB: [address] olicy Number: [id number] [facility] [address]Ujs: 330 [id number] Repository [phone] () Date:2018-03-02 [address]ATTN: [place] [address]ZK: 03/02/2018 Secondary NOT GIVENUNK Lucia Insurance:SELF PAY [facility] Number: Effective Repository Date:2018-03-02 12/31/2017 DALE E Primary [facility] BOX Insurance:[facility] [id number] SR olicy Number: Repository [address], [place] [id number]: ([phone]) Date:2013-09-24[id number] () [address] [place] [address]CX: 12/29/2017 DALE E Primary DALE E Lucia BOUGHMANP O Box Insurance:CARESOURCEP [facility]OUGHMCLAREN [facility]ATER [facility]ANS[facility] HOSPITALOB: [address] olicy Number: [id number] Hospital [id number]: 330 [id number] Repository [phone] () Date:2017-12-29P [address]ATTN: [place] [address]OF: 12/29/2017 Secondary NOT GIVENUNK Lucia Insurance:SELF PAY [facility] Number: Effective Repository Date:2017-12-29 12/24/2017 DALE E Primary DALE E [place] [facility] O Box Insurance:CARESOURCEP BOUGHMANDOB: Community [address] [place] [address] Number: [id number] Hospital [address]Uno: [phone]) [id number] Repository [phone] () Date:2017-12-24 O [facility] 8730ATTN: [place] [address]ZI: 12/24/2017 Secondary NOT GIVENUNK Lucia Insurance:SELF PAY [facility] Number: Effective Repository Date:2017-12-24 11/18/2017 DALE Primary DALE [facility] BOUGHMANDOB: Insurance:CARESOURCE BOUGHMANDOB: Three Repository [id number] BOX MANAGED [id number] [address] [place] [address] [address]Brc: (330) Number: [address], [place] [phone] () [id number] [phone] Date:[id number] [address]RC: 08/27/2017 DALE Primary DALE [facility] BOUGHMANDOB: Insurance:CARESOURCE BOUGHMANDOB: Three Repository [id number] BOX MANAGED [id number] [address] [place] [address] [address]Clq: 330) Number: [address], [place] [phone] () [id number] [phone] Date:[id number] [address] [address]NX: 08/05/2017 DALE E Primary DALE [facility] BOUGHMANDOB: Insurance:CARESOURCE BOUGHMANDOB: [facility] 1995 o MEDICAIDPolicy [id number] o Repository [address], Number: [place] [address]Qkd: [id number] [place] [address]Gyz: Date:2017-08-05 - (HP) [id number] (HP)Tel: [phone]) Name:PINA Rowe 000-0000 (WP) [address] [place] [address]FV: 06/17/2017 DALE E Primary DALE E [facility] Insurance:[facility]OCAROLINAEAST MEDICAL CENTEROB: [facility] 1995 o MEDICAIDPolicy [id number] o Repository [address], Number: [place] [address]Bqt: [id number] [place] [address]Qhy: Date:2017-06-17 - (HP) [id number] (HP)Tel: [phone]) Name:PINA Rowe 000-0000 (WP) [address] [place] [address]MP: 05/25/2017 DALE E Primary DALE E [facility] [id number] BOX MEDICAIDPolicy [id number] Repository [place], [place] Number: [id number]: 330 [id number] [phone] () Date:
== END ==
PROVIDERS: Family Provider Family Medicine; PCP Family Medicine; Visit Provider Family Medicine
DX: N39.0 Urinary tract infection, site not specified (principal)
CPT/HCPCS: 36415; 87086

== ENCOUNTER 2018-04-20 15:45 | Emergency (ER) | payer MEDICAID, SELFPAY ==
[2018-04-20 15:45] VITALS: BP 146/103; PULSE 81; RESP 16; TEMP 36.7; O2SAT 97; BMI 65.0
--- NOTE | 2018-04-20 15:58 | EKG12_ITS ---
Test Reason : CP Blood Pressure : / mmHG Vent. Rate : 076 BPM Atrial Rate : 076 BPM P-R Int : 186 ms QRS Dur : 154 ms QT Int : 410 ms P-R-T Axes : 023 006 162 degrees QTc Int : 461 ms Normal sinus rhythm Left bundle branch block Abnormal ECG Confirmed by JESENIA IBARRA, HILTON ([id number]), copy editor ADILSON ALCAZAR ([id number] on 04/25/2018 1:24:07 PM Referred By: FERNANDO Confirmed By:HILTON BA MD
[2018-04-20 16:00] VITALS: O2SAT 97
--- NOTE | 2018-04-20 16:00 | EKG12_ITS ---
Test Reason : CP Blood Pressure : / mmHG Vent. Rate : 079 BPM Atrial Rate : 079 BPM P-R Int : 184 ms QRS Dur : 156 ms QT Int : 410 ms P-R-T Axes : 032 006 157 degrees QTc Int : 470 ms Normal sinus rhythm Left bundle branch block Abnormal ECG Confirmed by JESENIA IBARRA, HILTON ([id number]), supervising film or videotape editor ADILSON ALCAZAR ([id number] on 04/25/2018 1:09:19 PM Referred By: Confirmed By:HILTON BA MD
--- NOTE | 2018-04-20 16:04 | ED.DCSUM_ITS ---
- ER Visit Summary Date of Service: 04/20/18 Chief Complaint: Chest pain History of Present Illness: The patient is a 23 M who presents for 3 days of substernal chest pain that waxed and wanes in intensity. Pain is described as burning. It is currently mild. Patient has had 2 weeks of fatigue, cough, and dizziness. On April 08 he was placed on Levaquin, once daily for 2 weeks by his primary care doctor. He has had no improvement. Today he has had hemoptysis, which he describes as reddish small masses that he is coughing up. He denies fever, rhinorrhea, congestion, headache, abdominal pain, nausea or vomiting, back pain. No radiation of his pain. He has a history of hypertension, Chiari malformation, open heart surgery at age 1 and [age] years for ventricular septal defect. Physical Examination: Vital signs: afebrile, hemodynamically stable, no hypoxia on room air General: well nourished, well developed,BMI of 65, in no distress Skin: warm, dry, no rash, no pallor HEENT: normocephalic and atraumatic; PERRL, EOMI, moist mucous membranes Cardiovascular: regular rate and rhythm without murmurs, nonpitting peripheral edema, 2+ pulses all distal extremities Respiratory: Mild increased work of breathing, lungs are clear to auscultation bilaterally, no rales, rhonchi or wheezing, frequent cough Abdominal: Abdomen is soft, nontender with normoactive bowel sounds, no guarding or rebound, no masses MSK: Moves all extremities, no deformities, normal strength Neuro: Awake and alert, oriented ?4. No facial droop, sensation and motor function intact and symmetric Test Results: Abnormal Lab Results 04/20/18 04/20/18 04/20/18 15:55 15:55 15:55 WBC 11.0 RBC 5.33 Hgb 14.8 Hct 43.8 MCV 82.2 MCH 27.8 MCHC 33.8 RDW 13.0 RDW Differential 39.0 Plt Count 250 MPV 8.9 Immature Gran % (Auto) 0.300 Neut % (Auto) 56.7 Lymph % (Auto) 33.8 [place] % (Auto) 8.1 Eos % (Auto) 0.7 Baso % (Auto) 0.4 Absolute Neuts (auto) 6.3 Absolute Lymphs (auto) 3.73 Total Counted Not Reportable PT 13.4 INR 1.0 APTT 27.1 D-Dimer Quant (PE/DVT) < 0.27 L Sodium 140 Potassium 3.9 Chloride 110 H Carbon Dioxide 21.0 Anion Gap 9 BUN 21 H Creatinine 0.82 Estim Creat Clear Calc 133.23 Est GFR (MDRD) Af Amer 147 Est GFR (MDRD) Non-Af 121 BUN/Creatinine Ratio 25.5 H Glucose 96 Calcium 8.9 Troponin I < 0.015 Clinical Impression(s) from Imaging Studies Chest X-Ray 04/20/18 17:10 IMPRESSION: No acute pulmonary process Electronically Signed: Rhys Leija MD at 17:55 EST , Service support , Medications Given Discontinued Medications Aspirin (Aspirin, Baby) 324 mg PO X1 STA Stop: 04/20/18 16:01 Last Admin: 04/20/18 16:09 Dose: 324 mg Sodium Chloride () 1,000 mls @ 250 mls/hr IV .Q4H [facility] Last Admin: 04/20/18 16:09 Dose: 250 mls/hr Nitroglycerin (Nitrostat) 0.4 mg SUBLINGUAL Q5M SHAQ Stop: 04/20/18 16:11 Last Admin: 04/20/18 17:42 Dose: Not Given Admin: 04/20/18 17:42 Dose: Not Given Admin: 04/20/18 17:41 Dose: Not Given Prednisone () 60 mg PO X1 ONE Stop: 04/20/18 19:48 Last Admin: 04/20/18 19:59 Dose: 60 mg Emergency Department Course and Treatment: Patient has complaints most consistent with a respiratory illness, however he is now having the chest pain and does have a cardiac history. Thus chest pain workup was performed. EKG showed a left bundle branch block with no ischemic changes per Sgarbossa criteria. He was consistent with patient's prior EKGs. Troponin negative. D- dimer was negative as well. No leukocytosis. No electrolyte derangements. Chest x-ray showed no sign of infiltrate, effusion or pulmonary edema. Patient did receive aspirin upon initial presentation was given nitro per chest pain protocol. He had no change in his discomfort. Patient is already on antibiotics, and with no improvement it is unlikely this is bacterial. Patient was started on prednisone. He is well-appearing, no tachycardia, no tachypnea, no hypoxia. He is to follow-up with his primary care doctor if he continues to have symptoms. Treatment Plan: [] Disposition: [] Impression: Persistent cough, pleuritic chest pain, respiratory infection This note was generated with [employer] dictation software. It may contain incorrect words, spelling, and punctuation that were not noted in review of the chart prior to signing ED Disposition - Plan for ED Patient: Disposition: Home or Assisted Living Chief Complaint: Chest Pain Instructions: ED Cough Chronic Cause Unkn, ED Chest Pain Atypical Unkn Cause Prescriptions: RX: Prednisone [Deltasone] 60 mg PO DAILY #15 tab Referrals: Nuno Beth MD [Primary Care Provider] - 3-5 Days Additional Instructions: Continue the antibiotic you were given by your family doctor. Take the prednisone once daily as prescribed. Follow-up with your family doctor for another evaluation in 3-5 days, especially if your cough is not improving. Use [id number] pain medication as needed for the chest discomfort. If you have any worsening of your condition or any new concerning symptoms, please return immediately to the emergency department for another evaluation.
[2018-04-20] MEDS: Aspirin 81 MG TAB.CHEW 324 MG PO (16:09)
[2018-04-20] MEDS: 0.9% Normal Saline 1,000 ML 250 ML IV (16:09)
[2018-04-20 16:23] LABS: Prothrombin Time (Protime)PT. 13.4 SECONDS (11.7-14.9)
[2018-04-20 16:24] LABS: Partial Thromboplast Time 27.1 Seconds (24.1-36.2)
[2018-04-20 16:25] LABS: Anion Gap 9 (5-15); BUN 21 mg/dL (7-18); BUN/Creat Ratio 25.5 RATIO (10-20); Calcium,Total 8.9 mg/dL (8.5-10.1); Chloride 110 mmol/L (98-107); Creatinine, Serum 0.82 mg/dL (0.70-1.30); EST Glomerular Filtration Rate 121 mL/min (>60); Est Glom Filt Rate - Afr Amer 147 mL/min (>60); Estimated Creatinine Clearance 133.23 ml/min; Glucose 96 mg/dL (74-106); Potassium 3.9 mmol/L (3.5-5.1); Sodium Level 140 mmol/L (136-145)
[2018-04-20 16:31] LABS: Absolute Lymphocyte Count 3.73 X10^3/ul (0.83-4.51); Absolute Neutrophil Count 6.3 X10^3/uL (2.0-7.7); Basophil# 0.04 X10^3/uL; Basophil% 0.4 % (0-1); Eosinophil# 0.08 X10^3/uL; Eosinophils% 0.7 % (0-5); Hematocrit 43.8 % (40-54); Hemoglobin 14.8 g/dl (13.0-16.5); Lymphocyte # 3.73 X10^3/ul (4.0); Lymphocyte % 33.8 % (19-41); Mean Corp Hgb Conc 33.8 g/gl (32-36); Mean Corpuscular Hgb 27.8 pg (27.0-32.0); Mean Corpuscular Volume 82.2 fL (80-94); Mean Platelet Vol. 8.9 fl (6.2-12.0); Monocyte# 0.89 X10^3/uL; Monocyte% 8.1 % (0-10); Neutrophil # 6.26 X10^3/uL (2.7-7.7); Neutrophil % 56.7 % (47-70); Platelet Count 250 K/mm3 (150-450); Red Blood Count 5.33 M/mm3 (4.6-6.2)
[2018-04-20 16:34] LABS: POSITIVE COUNT NO; POSITIVE DIFFERENTIAL NO; POSITIVE MORPHOLOGY NO
[2018-04-20 16:44] LABS: D-Dimer Quantitative (DVT/PE) < 0.27 FEU/ug/m (0.27-0.49)
--- NOTE | 2018-04-20 17:10 | RAD_ITS ---
STUDY: X-RAY CHEST REASON FOR EXAM: Male, 23 years old. Chest pain, obesity TECHNIQUE: 2 PA and lateral views of the chest. COMPARISON: 2014 FINDINGS: EKG leads overlie the chest The lungs are clear and expanded. There is no demonstrated pleural abnormality. Sternal cerclage wires are present from a prior sternotomy. Normal mediastinum and hever. Normal visualized pulmonary arteries. Normal visualized aortic arch and descending thoracic aorta. Normal visualized thoracic spine. Normal visualized ribs, clavicles, and shoulders. There is no demonstrated abnormality of the visualized soft tissue structures of the upper abdomen. RAD/Chest PA and Lateral IMPRESSION: No acute pulmonary process Electronically Signed: Rhys Leija MD at 17:55 EST , Service support ,
[2018-04-20 17:41] VITALS: BP 128/97; PULSE 70; RESP 19; O2SAT 98
[2018-04-20 19:00] VITALS: BP 148/79; PULSE 73; RESP 20; O2SAT 98
[2018-04-20 19:25] VITALS: PULSE 64; RESP 23; TEMP 36.8; O2SAT 100
--- NOTE | 2018-04-20 19:48 | ED.DEP ---
ED Disposition - Plan for ED Patient: Disposition: Home or Assisted Living Chief Complaint: Chest Pain Instructions: ED Chest Pain Atypical Unkn Cause, ED Cough Chronic Cause Unkn Prescriptions: Prednisone [Deltasone] 60 mg PO DAILY #15 tab Referrals: Nuno Beth MD [Primary Care Provider] - 3-5 Days Additional Instructions: Continue the antibiotic you were given by your family doctor. Take the prednisone once daily as prescribed. Follow-up with your family doctor for another evaluation in 3-5 days, especially if your cough is not improving. Use [id number] pain medication as needed for the chest discomfort. If you have any worsening of your condition or any new concerning symptoms, please return immediately to the emergency department for another evaluation.
[2018-04-20] MEDS: predniSONE 20 MG Tablet 60 MG PO (19:59)
[2018-04-20 20:03] VITALS: BP 146/78; PULSE 82; RESP 22; O2SAT 97
--- NOTE | 2018-04-20 20:04 | ED.RN ---
THIS NURSE REVIEWED D/C INSTRUCTIONS WITH PT. PT VERBALIZED UNDERSTANDING OF INSTRUCTIONS. IV D/C. IV CATHETER INTACT. PT TOLERATED WELL. PT DENIES FURTHER NEEDS OR QUESTIONS AT THIS TIME.
== END 2018-04-20 20:05 | disposition home or self-care (01) ==
PROVIDERS: Emergency Provider Emergency Medicine; Family Provider Family Medicine; PCP Family Medicine
DX: R05 Cough (principal); R07.81 Pleurodynia; J98.8 Other specified respiratory disorders; I44.7 Left bundle-branch block, unspecified; E66.9 Obesity, unspecified; I10 Essential (primary) hypertension; Q21.0 Ventricular septal defect; Z79.82 Long term (current) use of aspirin
CPT/HCPCS: 71046; 80048; 84484; 85025; 85379; 85610; 85730; 93005; 96360; 96361; 99285; A4216

== ENCOUNTER 2018-10-10 16:19 | Emergency (ER) | payer MEDICAID, SELFPAY ==
[2018-10-10 16:21] VITALS: BP 150/86; PULSE 93; RESP 18; TEMP 37.1; O2SAT 94; BMI 72.7
--- NOTE | 2018-10-10 16:34 | ED.DCSUM_ITS ---
- ER Visit Summary Date of Service: 10/10/18 Chief Complaint: Abdominal pain, nausea, diarrhea History of Present Illness: The patient is a 23 M who is had abdominal pain nausea and diarrhea for the past week. He states that his pain is diffuse and burning. Food makes it worse. Nothing makes it better. He has had nausea with intermittent vomiting. He has had diarrhea multiple times per day for the past week. He denies any blood. He has dysuria but denies any hematuria. He states he has a history of this is currently being worked up by urologist for multiple UTIs. He took nothing for this at home. Denies any fevers. No abdominal surgeries Physical Examination: Vital signs reviewed. HEENT exam unremarkable. Heart is tachycardic and regular rhythm without murmurs. Lungs are clear to auscultation. Abdomen is soft and nontender. Extremities reveal no edema. Skin exam normal. Neurologic exam normal. Test Results: Laboratory studies show a white blood cell count of 12.1, potassium 3.1, chloride 111, lipase 47 Emergency Department Course and Treatment: The patient was given IV fluids and Zofran. He feels much better. I feel this is likely viral etiology. Patient will be discharged with Imodium, Prilosec and Zofran ODT to help with his symptoms. His abdomen is soft and benign and I do not feel that imaging is necessary at this time. He will follow-up with his primary care physician. Treatment Plan: [] Disposition: Discharge Impression: Nausea vomiting and diarrhea This note was generated with [employer] dictation software. It may contain incorrect words, spelling, and punctuation that were not noted in review of the chart prior to signing ED Disposition - Plan for ED Patient: Disposition: Home or Assisted Living Instructions: ED Gastroenteritis Viral Prescriptions: Ondansetron [Zofran Odt] 4 mg PO Q8H PRN PRN #10 tab PRN Reason: Nausea Omeprazole [Prilosec] 20 mg PO DAILY #30 cap Loperamide HCl [Imodium A-D] 2 mg PO TID #20 cap Referrals: Nuno Beth MD [Primary Care Provider] -
[2018-10-10] MEDS: 0.9% Normal Saline 1,000 ML 1000 ML IV (16:47)
[2018-10-10] MEDS: Ondansetron 4 MG/2 ML Vial IV (16:51)
[2018-10-10 17:19] LABS: ALB/GLOB Ratio 0.9 RATIO (0.9-2.4); AST(SGOT) 12 U/L (15-37); Alanine Aminotransfer ALT/SGPT 26 U/L (16-61); Albumin, Serum 3.8 g/dL (3.2-5.0); Alkaline Phosphatase 73 U/L (45-117); Anion Gap 11 (5-15); BUN 12 mg/dL (7-18); BUN/Creat Ratio 13.5 RATIO (10-20); Calcium,Total 8.6 mg/dL (8.5-10.1); Chloride 111 mmol/L (98-107); Creatinine, Serum 0.89 mg/dL (0.70-1.30); EST Glomerular Filtration Rate 110 mL/min (>60); Est Glom Filt Rate - Afr Amer 133 mL/min (>60); Globulin 4.2 g/dL (2.2-4.2); Glucose 91 mg/dL (74-106); Lipase 47 U/L (73-393); Potassium 3.1 mmol/L (3.5-5.1); Sodium Level 142 mmol/L (136-145)
[2018-10-10 17:20] LABS: Absolute Lymphocyte Count 2.63 X10^3/ul (0.83-4.51); Absolute Neutrophil Count 8.1 X10^3/uL (2.0-7.7); Basophil# 0.04 X10^3/uL; Basophil% 0.3 % (0-1); Eosinophil# 0.18 X10^3/uL; Eosinophils% 1.5 % (0-5); Hematocrit 43.6 % (40-54); Hemoglobin 15.3 g/dl (13.0-16.5); Lymphocyte # 2.63 X10^3/ul (4.0); Lymphocyte % 21.7 % (19-41); Mean Corp Hgb Conc 35.1 g/gl (32-36); Mean Corpuscular Hgb 28.5 pg (27.0-32.0); Mean Corpuscular Volume 81.2 fL (80-94); Mean Platelet Vol. 8.7 fl (6.2-12.0); Monocyte% 9.9 % (0-10); Neutrophil # 8.06 X10^3/uL (2.7-7.7); Neutrophil % 66.4 % (47-70); Platelet Count 238 K/mm3 (150-450); RBC Distribution Width CV 13.7 % (11.6-14.6); RBC Distribution Width SD 40.4 fl (35.1-43.9); Red Blood Count 5.37 M/mm3 (4.6-6.2); White Blood Count 12.1 K/mm3 (4.4-11.0)
[2018-10-10 17:27] LABS: POSITIVE COUNT NO; POSITIVE DIFFERENTIAL NO; POSITIVE MORPHOLOGY NO
--- NOTE | 2018-10-10 18:04 | ED.DEP ---
ED Disposition - Plan for ED Patient: Disposition: Home or Assisted Living Instructions: ED Gastroenteritis Viral Prescriptions: Ondansetron [Zofran Odt] 4 mg PO Q8H PRN PRN #10 tab PRN Reason: Nausea Omeprazole [Prilosec] 20 mg PO DAILY #30 cap Loperamide HCl [Imodium A-D] 2 mg PO TID #20 cap Referrals: Nuno Beth MD [Primary Care Provider] -
[2018-10-10 18:27] VITALS: BP 121/74; PULSE 68; RESP 16; O2SAT 97
== END 2018-10-10 18:27 | disposition home or self-care (01) ==
PROVIDERS: Emergency Provider Emergency Medicine; Family Provider Family Medicine; PCP Family Medicine
DX: R11.2 Nausea with vomiting, unspecified (principal); R19.7 Diarrhea, unspecified; R10.9 Unspecified abdominal pain; R30.0 Dysuria; I10 Essential (primary) hypertension; Z87.440 Personal history of urinary (tract) infections
CPT/HCPCS: 80053; 83690; 85025; 96361; 96374; 99283; J7030; J2405

== ENCOUNTER → 2018-11-02 12:09 | Outpatient (CLI) | payer MEDICAID, SELFPAY ==
[2018-10-18 11:12] VITALS: BMI 64.8
--- NOTE | 2018-11-02 12:10 | ECHOCS_ITS ---
Reason For Study: Dyspnea/SOB Procedure This was a 2D Doppler, Color Flow transthoracic echocardiogram. The study was technically difficult. Contrast injection was performed. Exam performed in department. Left Ventricle Normal LV size. Moderate eccentric left ventricular hypertrophy. The estimated ejection fraction is 65 %. Septal motion consistent with IVCD. Right Ventricle Normal size and thickness. Normal systolic function. Atria The left atrium is mildly enlarged. Normal right atrium. Normal atrial septum. Mitral Valve The mitral valve is structurally normal. No prolapse or stenosis seen. Tricuspid Valve Normal tricuspid valve. Unable to estimate RV systolic pressure due to insufficient tricuspid regurgitant envelope. Aortic Valve Trisinus/trileaflet aortic valve. Trivial aortic valve insufficiency. Pulmonic Valve Normal pulmonic valve. Trivial pulmonic valve insufficiency. Great Vessels Normal aortic root. Normal arch. Normal inferior vena cava. Inferior vena cava collapse with sniff. Pericardium/Pleural No pericardial effusion. Medication Diluted definity 3ml given slow IV push to enhance endocardial definition. MMode/2D Measurements & Calculations LVIDd: 5.2 cm IVSd: 1.9 cm LVOT diam: 2.0 cm LVIDs: 3.5 cm LVPWd: 1.3 cm FS: 33.6 % LVOT area: 3.2 cm2 Ao root diam: 2.9 cm LAV(MOD-bp): 101.1 ml LVAd ap4: 41.2 cm2 LAV(MOD-bp) Indexed: 38.2 ml/m2 EDV(MOD-sp4): 148.8 ml LAV(MOD-sp2): 102.9 ml EDV(sp4-el): 155.2 ml LAV(MOD-sp4): 84.8 ml LVAs ap4: 22.8 cm2 ESV(MOD-sp4): 52.1 ml ESV(sp4-el): 53.1 ml EF(MOD-sp4): 65.0 % EF(sp4-el): 65.8 % SV(MOD-sp4): 96.7 ml SV(sp4-el): 102.1 ml LA A4 area: 24.0 cm2 LA dimension(2D): 5.3 cm RA A4 area: 15.0 cm2 Doppler Measurements & Calculations MV E max benito: 97.8 cm/sec Lat Peak E' Benito: 10.9 cm/sec Med Peak E' Benito: 10.1 cm/sec MV A max benito: 46.4 cm/sec E/E' lat: 9.0 E/E' med: 9.6 MV E/A: 2.1 Ao V2 max: 235.0 cm/sec LV V1 max: 153.2 cm/sec SV(LVOT): 116.5 ml Ao max P.1 mmHg LV V1 max P.4 mmHg Ao V2 mean: 172.5 cm/sec LV V1 mean P.4 mmHg Ao mean P.2 mmHg LV V1 mean: 110.0 cm/sec Ao V2 VTI: 53.3 cm LV V1 VTI: 36.7 cm ELBERT(I,D): 2.2 cm2 ELBERT(V,D): 2.1 cm2 PA V2 max: 126.2 cm/sec Interpretation Summary Moderate eccentric left ventricular hypertrophy. The estimated ejection fraction is 65 %. The left atrium is mildly enlarged. Unable to estimate RV systolic pressure due to insufficient tricuspid regurgitant envelope. Trivial aortic valve insufficiency. Trivial pulmonic valve insufficiency. Peak subvalvular aortic gradient of 20 mm Hg. No evidence of POOJA. The study was technically difficult. There is no comparison study available. Contrast injection was performed. Ordering Physician: Lex Horn Referring Physician: Nuno Beth Performed By: Serina Shane RDCS, RVT
[2018-11-02 15:36] LABS: AST(SGOT) 15 U/L (15-37); Alanine Aminotransfer ALT/SGPT 28 U/L (16-61); Albumin, Serum 3.5 g/dL (3.2-5.0); Alkaline Phosphatase 70 U/L (45-117); Bilirubin, Direct 0.11 mg/dL (0.00-0.30); Cholesterol 168 mg/dL (200); Globulin 3.9 g/dL (2.2-4.2); High Density Lipoprotein 32 mg/dL; Protein, Total 7.4 g/dL (6.4-8.2); Triglycerides 111 mg/dL; Very Low Density Lipoprotein 22 mg/dL (5-40)
== END ==
PROVIDERS: Family Provider Family Medicine; PCP Family Medicine; Referring Provider Internal Medicine Cardiovascular Disease; Visit Provider Internal Medicine Cardiovascular Disease
DX: I44.7 Left bundle-branch block, unspecified (principal); I10 Essential (primary) hypertension; G47.33 Obstructive sleep apnea (adult) (pediatric); E66.01 Morbid (severe) obesity due to excess calories; Q24.4 Congenital subaortic stenosis
CPT/HCPCS: 36415; 80061; 80076; 93306; Q9957; A4216; C8929

== ENCOUNTER → 2018-11-24 12:36 | Outpatient (CLI) | payer MEDICAID, SELFPAY ==
[2018-10-18 11:12] VITALS: BMI 64.8
--- NOTE | 2018-11-24 12:37 | STEWCON_ITS ---
Reason For Study: SOB, ABN EKG Stress Results Protocol: Dobutatmine Stress Echo Maximum Predicted HR: 195 bpm Target HR: 166 bpm % Maximum Predicted HR: 83 % DurationHeart Rate Stage (mm:ss) (bpm) BP Dose Comment BASELINE 64 158/85 DILUTED DEFINITY 7 CC USED DSE- 10 MCG 3:33 71 128/9910.00 DSE- 20 MCG 3:06 153 161/51074.00CP 6/10, SL SOB DSE- 30 MCG 3:38 162 139/9530.00CP 1010, SOB, NAUSEATED RECOVERY 93 135/94 SX SUBSIDED Stress Duration: 10:17 mm:ss Maximum Stress HR: 162 bpm Baseline Echocardiogram Findings The estimated ejection fraction is 65 %. Septal motion consistent with IVCD. Stress Echo Wall motion Data Resting WM Intermediate WM Stress WM Resting Wall Motion Wall Motion Stress No regional wall motion No regional wall motion abnormalities noted. abnormalities noted. EKG Data The baseline ECG displays normal sinus rhythm. The patient was titrated from 10 mcg to a maximun of 30 mcg of dobutamine during the stress. The maximum heart rate attained was 162 beats per minute. This was 83% of maximum predicted heart rate. During dobutamine infusion, there were no ST or T wave changes noted to suggest ischemia. Interpretation Summary The estimated ejection fraction is 65 %. Normal, adequate, dobutamine echocardiogram. Negative for ischemia by EKG and echocardiographic criteria. Patient did develop chest pain during infusion which is a nonspecific finding given dobutamine. No associated wall motion abnormalities. Rare PVCs noted during dobutamine which is a nonspecific finding. Decreased sensitivity due to very poor echo windows requiring Definity agent, as well as baseline left bundle branch block. Hypertensive blood pressure response to dobutamine. Final LVEF is 75%. Test terminated due to attainment of target heart rate. No complications. The study was technically difficult. Contrast injection was performed. Ordering Physician: Lex Horn MD Referring Physician: Lex Horn Performed By: Liseth Watson RDCS
== END ==
PROVIDERS: Family Provider Family Medicine; PCP Family Medicine; Referring Provider Internal Medicine Cardiovascular Disease; Visit Provider Internal Medicine Cardiovascular Disease
DX: R06.02 Shortness of breath (principal); I44.7 Left bundle-branch block, unspecified; E66.01 Morbid (severe) obesity due to excess calories; G47.33 Obstructive sleep apnea (adult) (pediatric); I10 Essential (primary) hypertension; R06.09 Other forms of dyspnea; Q24.4 Congenital subaortic stenosis
CPT/HCPCS: 93017; 93350; J7040; Q9957; A4216; C8928

== ENCOUNTER 2019-10-23 14:09 | Emergency (ER) | payer MEDICAID, SELFPAY ==
[2019-08-25 17:36] VITALS: BMI 67.7
[2019-10-23] VITALS (9 sets, daily range): BP systolic 121–141; BP diastolic 57–92; PULSE 60–84; RESP 17–28; TEMP 36.3–36.7; O2SAT 96–99; BMI 64.5
--- NOTE | 2019-10-23 16:03 | EKG12_ITS ---
Test Reason : SOB Blood Pressure : / mmHG Vent. Rate : 067 BPM Atrial Rate : 067 BPM P-R Int : 186 ms QRS Dur : 158 ms QT Int : 438 ms P-R-T Axes : 030 017 169 degrees QTc Int : 462 ms Normal sinus rhythm Left bundle branch block Abnormal ECG Confirmed by SLIME DOMINGUEZ ([id number]), newspaper editor managing SUSANNE FINK ([id number]) on 10/26/2019 11:52:27 AM Referred By: NEO Confirmed By:SLIME DOMINGUEZ
--- NOTE | 2019-10-23 16:03 | ED.VIS.GEN ---
History of Present Illness Chief Complaint: Shortness of Breath Informant: Patient Onset: Weeks Current Severity: Mild Maximum Severity: Moderate Narrative: Patient sent to the ER by PCP secondary to shortness of breath, swelling, chest pain. He reports intermittent chest pain for months that he is attributed to reflux disease. He has noted increasing swelling in his lower extremities for the last for 5 months, worse over the past week.. He reports increased shortness of breath for several weeks. He has had a wet sounding cough for the past couple of months. He denies having fever. - Past Medical History (1) Chiari malformation type I Status: Chronic Comment: Sees neurologist, considered poor surgical candidate d/t obesity (2) Congenital subaortic stenosis Status: Chronic Comment: Repaired @ [facility] 08/24/1994 (patient was age 1). (3) Essential hypertension Status: Chronic (4) Left bundle branch block Status: Chronic (5) Morbid obesity Status: Chronic (6) Obstructive sleep apnea Status: Chronic Comment: Uses BiPap, had titration in 07/2017 @ [facility] Past Medical History - Allergies and Home Meds Allergies/Adverse Reactions: Allergies amlodipine Allergy (Intermediate, Verified 10/23/19 14:13) Rash Penicillins Allergy (Verified 10/23/19 14:13) Hives phenobarbital Allergy (Verified 10/23/19 14:13) Shortness of breath Lodinated Contrast Adverse Reaction (Intermediate, Uncoded 10/23/19 14:13) Intolerance Primary Care Physician: Nuno Beth MD [Primary Care Provider] - Prior records reviewed: Yes Surgical History: - - Closure of PDA Smoking Status: Never smoker Review of Systems General: Denies: Chills, Fever Eyes: Denies: Visual changes - bilaterally ENT: Denies: Bilateral ear pain Cardiovascular: Reports: Chest pain Respiratory: Reports: Dyspnea, Cough, Sputum Gastrointestinal: Denies: Abdominal pain, Nausea, Vomiting, Diarrhea Genitourinary: Denies: Dysuria, Hematuria Musculoskeletal: Reports: Swelling. Denies: Extremity Pain Skin: Denies: Rash Neurological: Denies: Headache Hematologic: Denies: Easy bruising, Easy bleeding Allergy: Denies: Uticaria Physical Exam Vital Signs/Narrative: Vital Signs Temp Pulse Resp BP Pulse Ox 10/23/19 15:13 97.5 F L 68 17 121/57 H 97 10/23/19 14:13 97.5 F L 84 18 141/92 H 96 10/23/19 14:10 97.5 F L 84 18 141/92 H 96 Inital Vital Signs reviewed: Yes General: Well nourished, Well developed Head: Normocephalic ENT: Moist mucous membranes Neck: Supple Cardiovascular: Regular rate, Regular rhythm Respiratory: No distress, CTA bilaterally Abdomen: Soft, Nontender Extremities: Nontender, Edema - 2 to 3+ lower extremity edema, symmetric. Skin: Normal color Neurological: Alert, Oriented x3 Diagnostic/Tx/Re-eval Impressions Chest X-Ray 10/23/19 16:32 IMPRESSION: Borderline heart size. Status post median sternotomy. Left lower lobe infiltrate and/or atelectasis, new in the interval. Electronically Signed: Carlos Connors MD at 16:55 EDT , Service support , Chest CTA 10/23/19 17:29 IMPRESSION: 1. Faint hazy opacities in the lung bases bilaterally. Question early pneumonia. Consider typical and atypical etiologies. Electronically Signed: Sivan No MD at 19:59 EDT Tel , Service support , Venous Duplex 10/23/19 18:07 IMPRESSION: Normal venous Doppler ultrasound of the bilateral lower extremities. Electronically Signed: Sivan No MD at 20:19 EDT Tel , Service support , 10/23/19 16:32 Chest PA and Lateral [RAD] Stat 10/23/19 17:29 CTA Chest W/WO Contrast [CT] Stat Laboratory Results 10/23/19 10/23/19 10/23/19 16:10 16:10 16:10 WBC 9.7 RBC 5.08 Hgb 14.2 Hct 43.3 MCV 85.2 MCH 28.0 MCHC 32.8 RDW Std Deviation 39.8 RDW Coeff of Sena 13.0 Plt Count 244 MPV 9.0 Immature Gran % (Auto) 0.400 Neut % (Auto) 61.7 Lymph % (Auto) 28.1 [place] % (Auto) 8.2 Eos % (Auto) 1.2 Baso % (Auto) 0.4 Absolute Neuts (auto) 6.0 Absolute Lymphs (auto) 2.72 Nucleated RBC % 0 D-Dimer Quant (PE/DVT) Sodium 140 Potassium 3.8 Chloride 110 H Carbon Dioxide 23.0 Anion Gap 7 BUN 19 H Creatinine 0.83 Estim Creat Clear Calc 139.26 Est GFR (MDRD) Af Amer 143 Est GFR (MDRD) Non-Af 118 BUN/Creatinine Ratio 22.8 H Glucose 93 Calcium 8.7 Troponin I < 0.015 B-Natriuretic Peptide 25.6 10/23/19 16:10 WBC RBC Hgb Hct MCV MCH MCHC RDW Std Deviation RDW Coeff of Sena Plt Count MPV Immature Gran % (Auto) Neut % (Auto) Lymph % (Auto) [place] % (Auto) Eos % (Auto) Baso % (Auto) Absolute Neuts (auto) Absolute Lymphs (auto) Nucleated RBC % D-Dimer Quant (PE/DVT) 0.53 H* Sodium Potassium Chloride Carbon Dioxide Anion Gap BUN Creatinine Estim Creat Clear Calc Est GFR (MDRD) Af Amer Est GFR (MDRD) Non-Af BUN/Creatinine Ratio Glucose Calcium Troponin I B-Natriuretic Peptide - EKG Initial EKG Interpretation: Sinus Rhythm - Sinus at 67 with left bundle branch block. - Medical Decision Making Test results are discussed with patient and family at bedside. There is evidence of an early infiltrate in his lung. There is no evidence of PE, cardiac damage, or CHF. I encouraged him to elevate his feet to help with swelling. He will follow with his primary care physician regarding possible compression wraps. ED Disposition - Plan for ED Patient: Disposition: Home or Assisted Living Diagnosis: Pneumonia, Edema Instructions: ED Peripheral Edema, Bilateral, Pneumonia Prescriptions: Doxycycline 100 mg PO BID #20 cap Transmission Status[id number] Referrals: Nuno Beth MD [Primary Care Provider] - 1 Week
[2019-10-23 16:27] LABS: Absolute Lymphocyte Count 2.72 X10^3/uL (0.83-4.51); Basophil# 0.04 X10^3/uL; Basophil% 0.4 % (0-1); Eosinophil# 0.12 X10^3/uL; Eosinophils% 1.2 % (0-5); Hematocrit 43.3 % (40-54); Hemoglobin 14.2 g/dL (13.0-16.5); Lymphocyte # 2.72 X10^3/ul (4.0); Lymphocyte % 28.1 % (19-41); Mean Corp Hgb Conc 32.8 g/dL (32-36); Mean Corpuscular Volume 85.2 fL (80-94); Monocyte# 0.79 X10^3/uL; Monocyte% 8.2 % (0-10); NRBC Flagged by Analyzer 0 % (0-5); Neutrophil # 5.96 X10^3/uL (2.7-7.7); Neutrophil % 61.7 % (47-70); Platelet Count 244 K/mm3 (150-450); RBC Distribution Width SD 39.8 fl (35.1-43.9); Red Blood Count 5.08 M/mm3 (4.6-6.2); White Blood Count 9.7 K/mm3 (4.4-11.0)
--- NOTE | 2019-10-23 16:32 | RAD_ITS ---
STUDY: X-RAY CHEST REASON FOR EXAM: Male, 24 years old. WET COUGH, SOB, BLE EDEMA TECHNIQUE: PA and lateral views of the chest. COMPARISON: Prior study of 04/20/2018 FINDINGS: campus monitor leads are present. There is left lower lobe infiltrate and/or atelectasis. There is no demonstrated pleural abnormality. The heart size is borderline. Status post median sternotomy changes are noted. Normal mediastinum and hever. Normal visualized pulmonary arteries. Normal visualized aortic arch and descending thoracic aorta. Normal visualized thoracic spine. Normal visualized ribs, clavicles, and shoulders. There is no demonstrated abnormality of the visualized soft tissue structures of the upper abdomen. RAD/Chest PA and Lateral IMPRESSION: Borderline heart size. Status post median sternotomy. Left lower lobe infiltrate and/or atelectasis, new in the interval. Electronically Signed: Carlos Connors MD at 16:55 EDT , Service support ,
[2019-10-23 16:40] LABS: Anion Gap 7 (5-15); BUN 19 mg/dL (7-18); BUN/Creat Ratio 22.8 RATIO (10-20); Calcium,Total 8.7 mg/dL (8.5-10.1); Chloride 110 mmol/L (98-107); Creatinine, Serum 0.83 mg/dL (0.70-1.30); EST Glomerular Filtration Rate 118 mL/min (>60); Est Glom Filt Rate - Afr Amer 143 mL/min (>60); Estimated Creatinine Clearance 139.26 ml/min; Glucose 93 mg/dL (74-106); Potassium 3.8 mmol/L (3.5-5.1); Sodium Level 140 mmol/L (136-145)
[2019-10-23 17:11] LABS: BNP,B-Type NATRIURETIC PEPTIDE 25.6 pg/mL (0-100)
[2019-10-23 17:20] LABS: D-Dimer Quantitative (DVT/PE) 0.53 FEU/ug/m (0.27-0.49)
--- NOTE | 2019-10-23 17:29 | CT_ITS ---
STUDY: CTA CHEST REASON FOR EXAM: Male, 24 years old. DYSPNEA/SOB/WET COUGH RADIATION DOSAGE (If Supplied By Facility): CTDIvol = ( 29.89 ) mGy, DLP = ( 779.77 ) mGycm TECHNIQUE: The examination was performed with the intravenous administration of IV 100mL Isovue-370. Post-processing of the angiographic images was performed, with multiplanar reformation and 3D reconstruction. Individualized dose optimization techniques were used for this CT. COMPARISON: None. FINDINGS: The heart and pericardium are normal. The aorta is normal in caliber. No aneurysm or dissection. There is no mediastinal mass or adenopathy. There is no hilar or axillary adenopathy. There is no pleural effusion. There is no pulmonary consolidation. Mild hazy groundglass opacities in the peripheral lung bases bilaterally. Mild scarring versus interstitial disease in the superior segment of the left lower lobe. Visualized abdomen is unremarkable. There is no acute osseous abnormality. Chronic loss of height of a lower thoracic vertebral body. Mild degenerative disc changes of the lower thoracic spine. CT/CTA Chest W/WO Contrast IMPRESSION: 1. Faint hazy opacities in the lung bases bilaterally. Question early pneumonia. Consider typical and atypical etiologies. Electronically Signed: Sivan No MD at 19:59 EDT Tel , Service support ,
[2019-10-23] MEDS: MethylPREDNISolone 125 MG/2 ML Vial 60 MG IV (17:39)
[2019-10-23] MEDS: DiphenhydrAMINE 50 MG/ML Syringe 25 MG IV (17:40)
--- NOTE | 2019-10-23 18:07 | US_ITS ---
STUDY: VENOUS DOPPLER ULTRASOUND - BILATERAL LOWER EXTREMITIES REASON FOR EXAM: Male, 24 years old. LEG AND FEET SWELLING FOR A MONTH TECHNIQUE: Ultrasound evaluation of the deep vein system to include gonzalez-scale imaging and compression was performed. Gonzalez-scale imaging and Doppler sonographic evaluation, including duplex spectral analysis and qualitative color flow sonography, was performed. COMPARISON: None. FINDINGS: This study is limited due to patient body habitus. RIGHT LEG Common femoral, femoral, and popliteal veins are patent with no evidence of luminal thrombus. Deep venous structures respond normally to compression maneuvers. Normal color Doppler. Visualized calf veins are patent. LEFT LEG Common femoral, femoral, and popliteal veins are patent with no evidence of luminal thrombus. Deep venous structures respond normally to compression maneuvers. Normal color Doppler. Visualized calf veins are patent. US/Venous Duplex Imag/Kirk Extrem IMPRESSION: Normal venous Doppler ultrasound of the bilateral lower extremities. Electronically Signed: Sivan No MD at 20:19 EDT Tel , Service support ,
[2019-10-23] MEDS: Ondansetron 4 MG/2 ML Vial IV (18:35)
== END 2019-10-23 20:52 | disposition home or self-care (01) ==
PROVIDERS: Emergency Provider Emergency Medicine; PCP Family Medicine
DX: J18.9 Pneumonia, unspecified organism (principal); R60.0 Localized edema; E66.01 Morbid (severe) obesity due to excess calories; G47.33 Obstructive sleep apnea (adult) (pediatric); I10 Essential (primary) hypertension; K21.9 Gastro-esophageal reflux disease without esophagitis; I44.7 Left bundle-branch block, unspecified; Z88.0 Allergy status to penicillin; Z88.8 Allergy status to other drugs, medicaments and biological substances; Z98.890 Other specified postprocedural states; G93.5 Compression of brain
CPT/HCPCS: 71046; 71275; 80048; 83880; 84484; 85025; 85379; 93005; 93970; 96374; 96375; 99285; Q9967; A4216; J2405

== ENCOUNTER → 2020-01-25 15:02 | Outpatient (CLI) | payer MEDICAID, SELFPAY ==
[2019-10-23 14:10] VITALS: BMI 64.5
--- NOTE | 2020-01-25 15:06 | RAD_ITS ---
STUDY: X-RAY - RIGHT KNEE REASON FOR EXAM: Male, 24 years old. Knee pain-right more than left -- ? Premature OA, morbid obesity TECHNIQUE: 4 view(s) of the knee. COMPARISON: Left knee dated 01/25/2020 FINDINGS: Normal visualized distal femur. Normal visualized proximal tibia and fibula. Normal proximal tibiofibular articulation. There is mild degenerative arthrosis of the medial femorotibial compartment. There is mild degenerative arthrosis of the lateral femorotibial compartment. Normal patellofemoral articulation. The soft tissue structures are unremarkable. RAD/Knee 4 or More Views IMPRESSION: Mild degenerative changes. Electronically Signed: Rosalia Rodriguez MD at 15:28 EDT Tel , Service support ,
--- NOTE | 2020-01-25 15:06 | RAD_ITS ---
STUDY: X-RAY - LEFT KNEE REASON FOR EXAM: Male, 24 years old. Knee pain-right more than left -- ? Premature OA, morbid obesity TECHNIQUE: 4 view(s) of the knee. COMPARISON: Right knee dated 01/25/2020 FINDINGS: Normal visualized distal femur. Normal visualized proximal tibia and fibula. Normal proximal tibiofibular articulation. There is mild degenerative arthrosis of the medial femorotibial compartment. There is mild degenerative arthrosis of the lateral femorotibial compartment. Normal patellofemoral articulation. The soft tissue structures are unremarkable. RAD/Knee 4 or More Views IMPRESSION: Mild degenerative changes. Electronically Signed: Rosalia Rodriguez MD at 15:28 EDT Tel , Service support ,
== END ==
PROVIDERS: PCP Family Medicine; Referring Provider Family Medicine; Visit Provider Family Medicine
DX: M25.561 Pain in right knee (principal); M25.562 Pain in left knee; E66.01 Morbid (severe) obesity due to excess calories
CPT/HCPCS: 73564

== ENCOUNTER → 2020-07-15 11:37 | Outpatient (CLI) | payer MEDICAID, SELFPAY ==
[2020-02-12 15:03] VITALS: BMI 70.7
[2020-07-15 15:12] LABS: Absolute Lymphocyte Count 2.94 X10^3/uL (0.83-4.51); Absolute Neutrophil Count 6.3 X10^3/uL (2.0-7.7); Basophil# 0.06 X10^3/uL; Basophil% 0.6 % (0-1); Eosinophil# 0.13 X10^3/uL; Eosinophils% 1.3 % (0-5); Hemoglobin 14.1 g/dL (13.0-16.5); Lymphocyte # 2.94 X10^3/ul (4.0); Lymphocyte % 28.3 % (19-41); Mean Corp Hgb Conc 32.8 g/dL (32-36); Mean Corpuscular Hgb 28.4 pg (27.0-32.0); Mean Corpuscular Volume 86.7 fL (80-94); Mean Platelet Vol. 9.4 fl (6.2-12.0); Monocyte# 0.92 X10^3/uL; Monocyte% 8.9 % (0-10); NRBC Flagged by Analyzer 0 % (0-5); Neutrophil % 60.5 % (47-70); Platelet Count 264 K/mm3 (150-450); RBC Distribution Width CV 13.2 % (11.6-14.6); RBC Distribution Width SD 40.8 fl (35.1-43.9); Red Blood Count 4.96 M/mm3 (4.6-6.2); White Blood Count 10.4 K/mm3 (4.4-11.0)
[2020-07-15 15:26] LABS: Anion Gap 7 (5-15); BUN 20 mg/dL (7-18); BUN/Creat Ratio 24.5 RATIO (10-20); Chloride 111 mmol/L (98-107); Creatinine, Serum 0.82 mg/dL (0.70-1.30); EST Glomerular Filtration Rate 120 mL/min (>60); Est Glom Filt Rate - Afr Amer 145 mL/min (>60); Glucose 102 mg/dL (74-106); Potassium 3.7 mmol/L (3.5-5.1); Sodium Level 141 mmol/L (136-145)
[2020-07-15 15:41] LABS: Hemoglobin A1c 5.2 % (3.8-5.6)
== END ==
PROVIDERS: PCP Family Medicine; Referring Provider Family Medicine; Visit Provider Family Medicine
DX: E66.01 Morbid (severe) obesity due to excess calories (principal); I10 Essential (primary) hypertension; E88.81 Metabolic syndrome and other insulin resistance
CPT/HCPCS: 36415; 80048; 82533; 83036; 85025

== ENCOUNTER → 2020-08-23 20:00 | Outpatient (CLI) | payer MEDICAID, SELFPAY ==
[2020-07-16 12:39] VITALS: BMI 72.4
[2020-08-23] MEDS: Zolpidem Tartrate 5 MG Tablet PO (21:15)
== END ==
PROVIDERS: PCP Family Medicine; Referring Provider Nurse Practitioner Acute Care; Visit Provider Nurse Practitioner Acute Care
DX: G47.33 Obstructive sleep apnea (adult) (pediatric) (principal)
CPT/HCPCS: 95811

== ENCOUNTER → 2020-11-21 12:13 | Outpatient (CLI) | payer MEDICAID, SELFPAY ==
[2020-11-21 05:44] VITALS: BMI 72.4
[2020-11-21 15:19] LABS: Absolute Lymphocyte Count 3.43 X10^3/uL (0.83-4.51); Absolute Neutrophil Count 6.2 X10^3/uL (2.0-7.7); Basophil# 0.06 X10^3/uL; Basophil% 0.5 % (0-1); Eosinophil# 0.13 X10^3/uL; Eosinophils% 1.2 % (0-5); Hematocrit 43.7 % (40-54); Hemoglobin 14.2 g/dL (13.0-16.5); Lymphocyte # 3.43 X10^3/ul (0.83-4.51); Lymphocyte % 31.3 % (19-41); Mean Corp Hgb Conc 32.5 g/dL (32-36); Mean Corpuscular Hgb 27.6 pg (27.0-32.0); Mean Platelet Vol. 10.1 fl (6.2-12.0); Monocyte# 1.07 X10^3/uL; Monocyte% 9.8 % (0-10); NRBC Flagged by Analyzer 0 % (0-5); Neutrophil # 6.24 X10^3/uL (2.7-7.7); Neutrophil % 56.9 % (47-70); Platelet Count 253 K/mm3 (150-450); RBC Distribution Width CV 12.8 % (11.6-14.6); RBC Distribution Width SD 39.7 fl (35.1-43.9); Red Blood Count 5.14 M/mm3 (4.6-6.2)
[2020-11-21 15:47] LABS: Anion Gap 9 (5-15); BUN 20 mg/dL (7-18); BUN/Creat Ratio 23.9 RATIO (10-20); Calcium,Total 8.5 mg/dL (8.5-10.1); Chloride 107 mmol/L (98-107); Creatinine, Serum 0.84 mg/dL (0.70-1.30); EST Glomerular Filtration Rate 116 mL/min (>60); Est Glom Filt Rate - Afr Amer 141 mL/min (>60); Glucose 103 mg/dL (74-106); Potassium 3.8 mmol/L (3.5-5.1); Sodium Level 139 mmol/L (136-145)
== END ==
PROVIDERS: PCP Family Medicine; Referring Provider Family Medicine; Visit Provider Family Medicine
DX: I10 Essential (primary) hypertension (principal); E66.01 Morbid (severe) obesity due to excess calories
CPT/HCPCS: 36415; 80048; 85025

== ENCOUNTER 2020-12-17 13:30 | Outpatient (RCR) | payer MEDICAID, SELFPAY ==
[2020-11-21 05:44] VITALS: BMI 72.4
== END 2020-12-24 23:59 ==
LOC: NS 13:30
PROVIDERS: PCP Family Medicine; Visit Provider Internal Medicine Critical Care Medicine
DX: Z71.3 Dietary counseling and surveillance (principal); E66.01 Morbid (severe) obesity due to excess calories; Q24.4 Congenital subaortic stenosis; E88.81 Metabolic syndrome and other insulin resistance
CPT/HCPCS: 97802

== ENCOUNTER → 2020-12-20 15:33 | Outpatient (CLI) | payer MEDICAID, SELFPAY | PROVIDERS: PCP Family Medicine; Visit Provider Family Medicine | DX: N39.0 Urinary tract infection, site not specified (principal) | CPT/HCPCS: 87086; 87088 ==

== ENCOUNTER → 2020-12-23 13:36 | Outpatient (CLI) | payer MEDICAID, SELFPAY ==
[2020-11-21 05:44] VITALS: BMI 72.4
--- NOTE | 2020-12-23 13:38 | ECHOCS_ITS ---
Reason For Study: H/O Subaortic Stenosis Procedure This was a 2D Doppler, Color Flow transthoracic echocardiogram. Very technically difficult due to patients body habitus. Contrast injection performed. Exam performed in department. Left Ventricle Normal LV size. The estimated ejection fraction is 60 %. No evidence for diastolic dysfunction. No regional wall motion abnormalities noted. Right Ventricle Normal RV size. Normal systolic function. Atria The left atrium is not well visualized. The right atrium is not well visualized. Mitral Valve Mitral valve not well visualized. There is no mitral valve stenosis. No mitral valve insufficiency. Tricuspid Valve The tricuspid valve is not well visualized. Unable to estimate RV systolic pressure due to inadequate jet, pulmonary artery pressure probably normal. Aortic Valve The aortic valve is not well visualized. Mildly elevated velocity across the aortic valve that is not significantly changed from 2019. No aortic valve insufficiency. Pulmonic Valve There is no pulmonic valvular stenosis. No pulmonic valve insufficiency. Great Vessels Normal aortic root. Pericardium/Pleural No pericardial effusion. Medication 22 gauge I.V. with prn adaptor inserted into left arm. Diluted definity 4ml given slow IV push to enhance endocardial definition. MMode/2D Measurements & Calculations LAV(MOD-sp4): 109.1 ml LA A4 area: 30.1 cm2 RA A4 area: 26.0 cm2 Time Measurements MV dec time: 0.24 sec Doppler Measurements & Calculations MV E max benito: 90.5 cm/sec Lat Peak E' Benito: 9.6 cm/sec Med Peak E' Benito: 8.4 cm/sec MV A max benito: 50.9 cm/sec E/E' lat: 9.4 E/E' med: 10.8 MV E/A: 1.8 MV V2 max: 112.6 cm/sec MV P1/2t max benito: 114.5 cm/sec Ao V2 max: 265.7 cm/sec MV max P.1 mmHg MV P1/2t: 61.7 msec Ao max P.3 mmHg MV V2 mean: 53.2 cm/sec MV dec slope: 543.5 cm/sec2 Ao V2 mean: 192.9 cm/sec MV mean P.4 mmHg Ao mean P.8 mmHg MV V2 VTI: 30.9 cm MVA(P1/2t): 3.6 cm2 Ao V2 VTI: 61.3 cm LV V1 max: 119.4 cm/sec PA V2 max: 105.9 cm/sec LV V1 max P.7 mmHg LV V1 mean P.0 mmHg LV V1 mean: 79.6 cm/sec LV V1 VTI: 32.1 cm ECHO/Echo Complete W/ Contrast Interpretation Summary The study was technically difficult. Contrast injection was performed. The estimated ejection fraction is 60 %. No evidence for diastolic dysfunction. Mildly elevated velocity across the aortic valve that is not significantly lizarraga ged from 2019. The study was technically difficult. Contrast injection was performed. Ordering Physician: Stephanie Delgado Referring Physician: Nuno Beth Performed By: Martín Rose RCS
== END ==
PROVIDERS: PCP Family Medicine; Referring Provider Specialist; Visit Provider Specialist
DX: Q24.4 Congenital subaortic stenosis (principal)
CPT/HCPCS: 93306; Q9957; A4216; C8929; J3490

== ENCOUNTER → 2021-02-07 09:23 | Outpatient (CLI) | payer MEDICAID, SELFPAY | PROVIDERS: PCP Family Medicine; Referring Provider Internal Medicine Endocrinology, Diabetes & Metabolism; Visit Provider Internal Medicine Endocrinology, Diabetes & Metabolism | DX: E88.81 Metabolic syndrome and other insulin resistance (principal) | CPT/HCPCS: 36415; 82533 ==

== ENCOUNTER 2021-08-11 13:47 | Outpatient (CLI) | payer MEDICAID, SELFPAY ==
--- NOTE | 2021-08-11 14:04 | US_ITS ---
EXAM: US SCROTUM CLINICAL INDICATION: LUMP ANTERIOR R TESTICLE TECHNIQUE: Realtime ultrasound of the testicles was performed with grayscale and Color Doppler analysis. This report was created using [employer] report [employer] technology. COMPARISON: None. FINDINGS: RIGHT TESTICLE: Along the right lateral surface of the testicle there is a well-circumscribed 4-5 mm simple appearing cyst that corresponds to the palpable abnormality. Right testicle measures 4.5 x 3.8 x 2.1 cm. Normal blood flow is present. LEFT TESTICLE: Left testicle measures 4.4 x 3 x 2.4 cm. Normal in size and echotexture. No focal lesion. Normal blood flow is present. EPIDIDYMIDES: Unremarkable. Normal in size and echotexture, without focal lesion. Normal color Doppler flow pattern in the epididymis. SCROTUM: Unremarkable. No hydrocele. No varicocele. 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 Electronically Signed: Sesar Mclean MD at 6:30 EDT ,
[2021-08-11 15:49] LABS: Hemoglobin A1c 5.5 % (3.8-5.6)
[2021-08-11 15:58] LABS: Insulin 89.7 mU/L (2.6-37.6)
[2021-08-11 16:05] LABS: ALB/GLOB Ratio 0.7 RATIO (0.9-2.4); AST(SGOT) 14 U/L (15-37); Alanine Aminotransfer ALT/SGPT 26 U/L (16-61); Albumin, Serum 3.2 g/dL (3.2-5.0); Alkaline Phosphatase 66 U/L (45-117); Anion Gap 8 (5-15); BUN 11 mg/dL (7-18); BUN/Creat Ratio 14.9 RATIO (10-20); Calcium,Total 8.6 mg/dL (8.5-10.1); Chloride 108 mmol/L (98-107); Cholesterol 168 mg/dL (200); Creatinine, Serum 0.74 mg/dL (0.70-1.30); EST Glomerular Filtration Rate 134 mL/min (>60); Est Glom Filt Rate - Afr Amer 162 mL/min (>60); Globulin 4.5 g/dL (2.2-4.2); Glucose 88 mg/dL (74-106); High Density Lipoprotein 28 mg/dL; Potassium 3.9 mmol/L (3.5-5.1); Protein, Total 7.7 g/dL (6.4-8.2); Sodium Level 139 mmol/L (136-145); Thyroid Stim Hormone (TSH) 3.38 uIU/mL (0.358-3.74); Triglycerides 149 mg/dL; Very Low Density Lipoprotein 30 mg/dL (5-40)
[2021-08-13 11:13] LABS: C-Peptide 10.4 ng/mL (1.1-4.4)
== END 2021-08-11 23:59 | disposition home or self-care (01) ==
LOC: US 13:48
PROVIDERS: PCP Family Medicine; Visit Provider Family Medicine
DX: N50.89 Other specified disorders of the male genital organs (principal); E66.01 Morbid (severe) obesity due to excess calories; E88.81 Metabolic syndrome and other insulin resistance
CPT/HCPCS: 36415; 76870; 80053; 80061; 83036; 83525; 84439; 84443; 84681; 93976

== ENCOUNTER → 2021-12-09 | Outpatient (CLI) | payer MEDICAID, SELFPAY ==
--- NOTE | 2021-12-09 13:09 | CPS ---
Due to pt's weight the plesmography was unable to be performed
--- NOTE | 2021-12-10 05:48 | PFTCOMP ---
COMPLETE PULMONARY FUNCTION TEST INTERPRETATION Brief HPI: Patient is a 26-year-old male, currently under the care of myself, who presents to [facility] for complete pulmonary function tests secondary to diagnosis of dyspnea. Respiratory therapist reports good effort and reproducible results. Patient's weight precluded plethysmography for lung volumes. Interpretation: Forced expiration spirometry shows no large airways obstructive ventilatory defect with an FEV1 of 69% predicted. There is no significant bronchodilator response by strict ATS criteria. Spirograms are of good quality and plateau normally. The respiratory flow volume loop shows flattening of the expiratory limb consistent with a possible variable intrathoracic airway obstruction. Lung volumes by body plethysmography were unable to be performed secondary to body habitus Diffusion capacity by carbon monoxide is decreased at 66% predicted. The airway resistance is not available. No previous pulmonary function tests were available for review. Impression: Suggestive of restrictive ventilatory defect with symmetric reduction in diffusion capacity. Consider imaging for variable extrathoracic obstruction
== END | disposition home or self-care (01) ==
LOC: PSN 12:42
PROVIDERS: PCP Family Medicine; Referring Provider Internal Medicine Critical Care Medicine; Visit Provider Internal Medicine Critical Care Medicine
DX: R06.00 Dyspnea, unspecified (principal); R00.2 Palpitations
CPT/HCPCS: 93225; 93226; 94060; 94729

== ENCOUNTER → 2021-12-24 | Outpatient (CLI) | payer MEDICAID, SELFPAY ==
--- NOTE | 2021-12-24 16:00 | CT_ITS ---
INDICATION: concern for medistinal mass EXAMINATION: CT CHEST WITH CONTRAST - CT Chest W/ Contrast Injection TECHNIQUE: Helically acquired images were obtained of the chest following IV contrast. A radiation dose optimization technique was used for this scan. IV Contrast dosage and agent: 100 mL [id number] COMPARISON: October 23, 2019. FINDINGS: LUNGS, PLEURA AND LARGE AIRWAYS: No masses, consolidation, or edema. No pleural effusion or thickening. No pneumothorax. THYROID: Left thyroid 1.1 cm inferior hypodense nodule HEART AND PERICARDIUM: Heart size is normal. No pericardial effusion. VESSELS: Thoracic aorta is not dilated. No aortic dissection. No obvious central pulmonary embolism although this study was not performed with the pulmonary embolism protocol. MEDIASTINUM AND ANABELL: Anterior mediastinal fat and soft tissue stranding without significant change from October 23, 2019 without masslike nodularity, compatible with minimal residual thymus. Esophagus is unremarkable. No hiatal hernia. UPPER ABDOMEN: No acute pathology. BONES: No suspicious lytic or blastic abnormality. Prior sternotomy changes are noted. CT/Chest WITH Contrast IMPRESSION: Anterior mediastinal fat and soft tissue stranding without discrete nodularity or significant change from October 23, 2019 given differences in slice selection and lung volumes. Prior sternotomy changes are noted. If there is concern for mediastinal mass consider 6-12 month follow-up MRI. Resolution of previous pulmonary centrilobular nodularity. No evidence of pulmonary mass. Left thyoid 1.1cm nodule, better seen are slightly enlarged compared with October 23, 2019. Recommend ultrasound characterization when clinically able. Electronically Signed: Yves Blum MD at 18:23 EDT ,
[2021-12-24 16:15] LABS: CREATININE FINGERSTICK < 0.9 mg/dL (0.70-1.30); EGFR FINGERSTICK > 60.0000 mL/min (>60)
== END | disposition home or self-care (01) ==
LOC: CT 15:35
PROVIDERS: PCP Family Medicine; Visit Provider Nurse Practitioner Acute Care
DX: R94.2 Abnormal results of pulmonary function studies (principal)
CPT/HCPCS: 71260; Q9967; A4216

== ENCOUNTER → 2022-01-02 | Outpatient (CLI) | payer MEDICAID, SELFPAY ==
[2022-01-02 13:44] LABS: Hemoglobin A1c 5.7 % (3.8-5.6)
[2022-01-02 13:53] LABS: Insulin 42.9 mU/L (2.6-37.6)
[2022-01-02 14:00] LABS: ALB/GLOB Ratio 0.8 RATIO (0.9-2.4); AST(SGOT) 12 U/L (15-37); Alanine Aminotransfer ALT/SGPT 28 U/L (16-61); Albumin, Serum 3.4 g/dL (3.2-5.0); Alkaline Phosphatase 62 U/L (45-117); Anion Gap 7 (5-15); BUN 8 mg/dL (7-18); BUN/Creat Ratio 10.4 RATIO (10-20); Chloride 106 mmol/L (98-107); Creatinine, Serum 0.77 mg/dL (0.70-1.30); EST Glomerular Filtration Rate 127 mL/min (>60); Est Glom Filt Rate - Afr Amer 154 mL/min (>60); Globulin 4.5 g/dL (2.2-4.2); Glucose 99 mg/dL (74-106); Potassium 4.1 mmol/L (3.5-5.1); Protein, Total 7.9 g/dL (6.4-8.2); Sodium Level 140 mmol/L (136-145)
== END | disposition home or self-care (01) ==
LOC: LAB 12:57
PROVIDERS: PCP Family Medicine
DX: E88.81 Metabolic syndrome and other insulin resistance (principal); E16.1 Other hypoglycemia
CPT/HCPCS: 36415; 80053; 83036; 83525; 84439; 84443

== ENCOUNTER → 2022-01-30 | Outpatient (CLI) | payer MEDICAID, SELFPAY ==
--- NOTE | 2022-01-30 15:10 | US_ITS ---
STUDY: THYROID ULTRASOUND REASON FOR EXAM: Male, 26 years old. Nodule seen on CT. TECHNIQUE: Ultrasound evaluation of the thyroid was performed with real-time and static land-scale imaging. COMPARISON: CT of the chest, 12/24/2021. FINDINGS: RIGHT LOBE: The right lobe of the thyroid gland measures 5.2 x 1.9 x 1.9 cm. There is a heterogeneous echotexture. There are no demonstrated solid, cystic or complex lesions. Normal vascularity. LEFT LOBE: The left lobe of the thyroid gland measures 6.3 x 1.9 x 2.1 cm. There is a heterogeneous echotexture. In the upper pole there is a 1.3 x 6.9 x 1.3 cm anechoic structure transmission, thought to represent a cyst. In the lower pole there is a 0.4 x 0.3 x 0.2 cm anechoic structure with through transmission, consistent with cysts. ISTHMUS: The isthmus measures 0.2 cm. The regional lymph nodes are normal. US/Thyroid IMPRESSION: Heterogenous thyroid. There are 2 simple cysts in the left thyroid. No follow-up is required. Electronically Signed: Chaz Medellin DO at 22:50 EDT ,
== END | disposition home or self-care (01) ==
LOC: US 15:08
PROVIDERS: PCP Family Medicine
DX: E04.1 Nontoxic single thyroid nodule (principal)
CPT/HCPCS: 76536

== ENCOUNTER → 2022-02-12 | Outpatient (CLI) | payer MEDICAID, SELFPAY ==
--- NOTE | 2022-02-12 14:58 | US_ITS ---
STUDY: SCROTUM ULTRASOUND REASON FOR EXAM: Male, 27 years old. Pain. Pulling feeling in the left groin. TECHNIQUE: Ultrasound evaluation of the scrotum was performed with color Doppler and static land-scale imaging. COMPARISON: None. FINDINGS: RIGHT TESTICLE INTRATESTICULAR: There is a normal size of the right testicle. The right testicle measures 4.9 x 3.0 x 2.2 cm. There is a homogenous echotexture. There is normal arterial and normal venous vascularity. There is no demonstrated right testicular mass or cyst. EXTRATESTICULAR: The epididymis is normal in size. The epididymis head measures 0.8 x 0.9 x 0.7 cm. There is normal vascularity of the epididymis. There is a 0.7 cm cyst between the testicle and epididymal and question epididymal head cyst. There is no demonstrated hydrocele. There is no demonstrated varicocele. There is no demonstrated extratesticular mass or cyst. LEFT TESTICLE INTRATESTICULAR: There is a normal size of the left testicle. The left testicle measures 4.5 x 3.0 x 2.3 cm. There is a homogenous echotexture. There is normal arterial and normal venous vascularity. There is no demonstrated left testicular mass or cyst. EXTRATESTICULAR: The epididymis is normal in size. The epididymis head measures 1.0 x 0.6 x 0.9 cm. There is normal vascularity of the epididymis. There is no demonstrated epididymal cystic structure. There is no demonstrated hydrocele. There is no demonstrated varicocele. There is no demonstrated extratesticular mass or cyst. US/Testicular with Arterial Flow IMPRESSION: Small right epididymal head cyst. Otherwise normal scrotal ultrasound. Electronically Signed: Chaz Medellin DO at 16:11 EDT ,
== END | disposition home or self-care (01) ==
LOC: US 14:57
PROVIDERS: PCP Family Medicine; Referring Provider Family Medicine; Visit Provider Family Medicine
DX: N50.812 Left testicular pain (principal)
CPT/HCPCS: 76870; 93976

== ENCOUNTER → 2022-06-17 | Outpatient (CLI) | payer MEDICAID, SELFPAY ==
[2022-06-17 15:17] LABS: Absolute Neutrophil Count 6.7 X10^3/uL (2.0-7.7); Basophil# 0.05 X10^3/uL; Basophil% 0.5 % (0-1); Eosinophil# 0.13 X10^3/uL; Eosinophils% 1.2 % (0-5); Hematocrit 43.6 % (40-54); Hemoglobin 14.3 g/dL (13.0-16.5); Lymphocyte % 27.5 % (19-41); Mean Corp Hgb Conc 32.8 g/dL (32-36); Mean Corpuscular Volume 85.3 fL (80-94); Monocyte# 0.78 X10^3/uL; Monocyte% 7.4 % (0-10); NRBC Flagged by Analyzer 0 % (0-5); Neutrophil # 6.66 X10^3/uL (2.7-7.7); Platelet Count 266 K/mm3 (150-450); RBC Distribution Width CV 13.1 % (11.6-14.6); RBC Distribution Width SD 39.9 fl (35.1-43.9); Red Blood Count 5.11 M/mm3 (4.6-6.2); White Blood Count 10.6 K/mm3 (4.4-11.0)
[2022-06-17 16:06] LABS: Hemoglobin A1c 5.4 % (3.8-5.6)
[2022-06-17 16:09] LABS: BUN 11 mg/dL (7-18); Creatinine, Serum 0.83 mg/dL (0.70-1.30); Glucose 111 mg/dL (74-106)
[2022-06-17 16:10] LABS: ALB/GLOB Ratio 0.8 RATIO (0.9-2.4); AST(SGOT) 16 U/L (15-37); Alanine Aminotransfer ALT/SGPT 33 U/L (16-61); Albumin, Serum 3.6 g/dL (3.2-5.0); Alkaline Phosphatase 65 U/L (45-117); Anion Gap 5 (5-15); BUN/Creat Ratio 13.2 RATIO (10-20); Calcium,Total 9.6 mg/dL (8.5-10.1); Chloride 106 mmol/L (98-107); Cholesterol 188 mg/dL (200); EST Glomerular Filtration Rate 116 mL/min (>60); Est Glom Filt Rate - Afr Amer 140 mL/min (>60); Globulin 4.5 g/dL (2.2-4.2); High Density Lipoprotein 33 mg/dL; Protein, Total 8.1 g/dL (6.4-8.2); Sodium Level 139 mmol/L (136-145); T4 Free Direct 1.08 ng/dL (0.76-1.46); Thyroid Stim Hormone (TSH) 3.49 uIU/mL (0.358-3.74); Triglycerides 162 mg/dL; Very Low Density Lipoprotein 32 mg/dL (5-40)
[2022-06-19 19:59] LABS: Thyroid Peroxidase AB 23 IU/mL (0-34)
== END | disposition home or self-care (01) ==
LOC: LAB 14:35
PROVIDERS: PCP Family Medicine
DX: E16.1 Other hypoglycemia (principal); E04.1 Nontoxic single thyroid nodule
CPT/HCPCS: 36415; 80053; 80061; 83036; 84439; 84443; 85025; 86376

== ENCOUNTER → 2022-12-24 | Outpatient (CLI) | payer MEDICAID, SELFPAY ==
[2022-12-24 13:44] LABS: Hemoglobin A1c 5.3 % (3.8-5.6)
[2022-12-24 14:10] LABS: Insulin 23.4 mU/L (2.6-37.6)
[2022-12-24 14:24] LABS: ALB/GLOB Ratio 0.8 RATIO (0.9-2.4); AST(SGOT) 16 U/L (15-37); Alanine Aminotransfer ALT/SGPT 38 U/L (16-61); Albumin, Serum 3.4 g/dL (3.2-5.0); Alkaline Phosphatase 65 U/L (45-117); Anion Gap 6 (5-15); BUN 13 mg/dL (7-18); BUN/Creat Ratio 15.5 RATIO (10-20); Calcium,Total 9.1 mg/dL (8.5-10.1); Chloride 107 mmol/L (98-107); Creatinine, Serum 0.84 mg/dL (0.70-1.30); EST Glomerular Filtration Rate 114 mL/min (>60); Est Glom Filt Rate - Afr Amer 138 mL/min (>60); Glucose 92 mg/dL (74-106); Potassium 3.9 mmol/L (3.5-5.1); Protein, Total 7.4 g/dL (6.4-8.2); Sodium Level 138 mmol/L (136-145); T4 Free Direct 1.15 ng/dL (0.76-1.46); Thyroid Stim Hormone (TSH) 2.66 uIU/mL (0.358-3.74)
[2022-12-26 16:08] LABS: C-Peptide 4.2 ng/mL (1.1-4.4)
== END | disposition home or self-care (01) ==
PROVIDERS: PCP Family Medicine
DX: E16.1 Other hypoglycemia (principal)
CPT/HCPCS: 36415; 80053; 83036; 83525; 84439; 84443; 84681

== ENCOUNTER → 2023-07-22 | Outpatient (CLI) | payer MEDICAID, SELFPAY ==
[2023-07-22 16:23] LABS: Absolute Lymphocyte Count 2.77 X10^3/uL (0.83-4.51); Absolute Neutrophil Count 4.9 X10^3/uL (2.0-7.7); Basophil# 0.06 X10^3/uL; Basophil% 0.7 % (0-1); Eosinophils% 1.2 % (0-5); Hematocrit 40.8 % (40-54); Hemoglobin 13.3 g/dL (13.0-16.5); Lymphocyte # 2.77 X10^3/ul (0.83-4.51); Lymphocyte % 32.6 % (19-41); Mean Corp Hgb Conc 32.6 g/dL (32-36); Mean Corpuscular Volume 82.9 fL (80-94); Mean Platelet Vol. 9.1 fl (6.2-12.0); Monocyte# 0.69 X10^3/uL; Monocyte% 8.1 % (0-10); NRBC Flagged by Analyzer 0 % (0-5); Neutrophil # 4.85 X10^3/uL (2.7-7.7); Neutrophil % 57.2 % (47-70); Platelet Count 243 K/mm3 (150-450); RBC Distribution Width CV 13.2 % (11.6-14.6); RBC Distribution Width SD 39.8 fl (35.1-43.9); Red Blood Count 4.92 M/mm3 (4.6-6.2); White Blood Count 8.5 K/mm3 (4.4-11.0)
[2023-07-22 16:54] LABS: BNP,B-Type NATRIURETIC PEPTIDE 21.2 pg/mL (0-100)
[2023-07-22 17:05] LABS: Anion Gap 5 (5-15); BUN 16 mg/dL (7-18); BUN/Creat Ratio 16.7 RATIO (10-20); Calcium,Total 8.7 mg/dL (8.5-10.1); Chloride 108 mmol/L (98-107); Creatinine, Serum 0.96 mg/dL (0.70-1.30); EST Glomerular Filtration Rate 98 mL/min (>60); Est Glom Filt Rate - Afr Amer 118 mL/min (>60); Glucose 115 mg/dL (74-106); Potassium 3.9 mmol/L (3.5-5.1); Sodium Level 141 mmol/L (136-145); Thyroid Stim Hormone (TSH) 1.03 uIU/mL (0.358-3.74)
== END | disposition home or self-care (01) ==
LOC: LAB 15:59
PROVIDERS: PCP Family Medicine; Referring Provider Nurse Practitioner Gerontology; Visit Provider Nurse Practitioner Gerontology
DX: R06.00 Dyspnea, unspecified (principal)
CPT/HCPCS: 36415; 80048; 83735; 83880; 84443; 85025

== ENCOUNTER → 2023-08-03 | Outpatient (CLI) | payer MEDICAID, SELFPAY | END | disposition home or self-care (01) | LOC: PSN 13:02 | PROVIDERS: PCP Family Medicine; Referring Provider Nurse Practitioner Gerontology; Visit Provider Nurse Practitioner Gerontology | DX: R00.2 Palpitations (principal) | CPT/HCPCS: 93225; 93226 ==

== ENCOUNTER → 2023-08-23 | Outpatient (CLI) | payer MEDICAID, SELFPAY ==
--- NOTE | 2023-08-23 13:29 | ECHOCS_ITS ---
Reason For Study: DOLAN Procedure This was a 2D Doppler, Color Flow transthoracic echocardiogram. The study was technically difficult. Contrast injection was performed. Exam performed in department. Left Ventricle Normal left ventricle. Left ventricular systolic function is normal. The estimated ejection fraction is 60 %. No regional wall motion abnormalities noted. Right Ventricle Normal RV size. Normal systolic function. Aortic Valve The aortic valve is not well visualized. Peak aortic valve gradient 29 mmHg. Mean aortic valve gradient 18 mmHg. Mild aortic stenosis. Pericardium/Pleural No pericardial effusion. Medication 20 gauge I.V. with prn adaptor inserted into right arm. Diluted definity 5ml given slow IV push to enhance endocardial definition. MMode/2D Measurements & Calculations LAV(MOD-sp4): 53.1 ml LA A4 area: 19.8 cm2 Time Measurements MV dec time: 0.20 sec Doppler Measurements & Calculations MV E max benito: 76.5 cm/sec Lat Peak E' Benito: 13.1 cm/sec Med Peak E' Benito: 10.9 cm/sec MV A max benito: 61.5 cm/sec E/E' lat: 5.9 E/E' med: 7.0 MV E/A: 1.2 MV V2 max: 67.8 cm/sec MV dec slope: 381.8 cm/sec2 Ao V2 max: 267.8 cm/sec MV max P.8 mmHg Ao max P.7 mmHg MV V2 mean: 41.5 cm/sec Ao V2 mean: 194.6 cm/sec MV mean P.79 mmHg Ao mean P.6 mmHg MV V2 VTI: 15.7 cm Ao V2 VTI: 59.3 cm AV (velocity ratio): 0.48 LV V1 max: 120.3 cm/sec PA V2 max: 130.9 cm/sec LV V1 max P.8 mmHg PA V2 mean: 87.4 cm/sec LV V1 mean P.1 mmHg LV V1 mean: 96.8 cm/sec LV V1 VTI: 28.7 cm ECHO/Echo Complete W/ Contrast Interpretation Summary Normal left ventricle. Left ventricular systolic function is normal. The estimated ejection fraction is 60 %. Mean aortic valve gradient 18 mmHg. Mild aortic stenosis. Contrast injection was performed. Ordering Physician: Ashleigh Rojas Referring Physician: Ashleigh Rojas Performed By: Trish Ghosh RCS
== END | disposition home or self-care (01) ==
LOC: CVS 13:27
PROVIDERS: PCP Family Medicine; Referring Provider Nurse Practitioner Gerontology; Visit Provider Nurse Practitioner Gerontology
DX: R06.00 Dyspnea, unspecified (principal); Q24.4 Congenital subaortic stenosis
CPT/HCPCS: 93306; Q9957; A4216; C8929

== ENCOUNTER → 2023-09-13 | Outpatient (CLI) | payer MEDICAID, SELFPAY ==
--- NOTE | 2023-09-13 13:32 | RAD_ITS ---
STUDY: X-RAY - THORACIC SPINE REASON FOR EXAM: Male, 28 years old. Mid to low back pain. TECHNIQUE: 3 view(s) of the thoracic spine were obtained on 4 images. Study compromised by underpenetration. COMPARISON: None. FINDINGS: Slight increased kyphosis. Mild thoracolumbar scoliosis. Diffuse intervertebral disc space narrowing with anterior wedge compression deformities of multiple lower thoracic vertebral bodies resulting in increased kyphosis. Intervertebral disc space narrowing with osteophytes in the lower thoracic spine. Sternotomy wires. Otherwise normal soft tissues. RAD/Thoracic Spine 3 Views IMPRESSION: Anterior wedge compression deformities of multiple lower thoracic vertebral bodies with moderate spondylosis and increased kyphosis. Electronically Signed: Yann Gutierrez MD at 14:24 EDT ,
--- NOTE | 2023-09-13 13:35 | RAD_ITS ---
STUDY: X-RAY - LUMBAR SPINE REASON FOR EXAM: Male, 28 years old. Mid to low back pain. TECHNIQUE: 4 view(s) of the lumbar spine were obtained on 7 images. Study compromised by underpenetration. COMPARISON: None FINDINGS: Normal lumbar lordosis. Mild thoracolumbar scoliosis. Normal gross anatomic alignment of the vertebral bodies. Diffuse moderate lower thoracic and lumbosacral facet sclerosis. Diffuse mild intervertebral disc space narrowing with small osteophytes. Normal soft tissues. RAD/L/S Spine Min 4 Views IMPRESSION: Scoliosis with diffuse mild lower thoracic and lumbosacral spondylosis. Study compromised by underpenetration. Electronically Signed: Yann Gutierrez MD at 14:25 EDT ,
== END | disposition home or self-care (01) ==
LOC: RAD 13:28
PROVIDERS: PCP Family Medicine; Referring Provider Family Medicine; Visit Provider Family Medicine
DX: M51.36 Other intervertebral disc degeneration, lumbar region (principal)
CPT/HCPCS: 72072; 72110

== ENCOUNTER → 2023-10-15 | Outpatient (CLI) | payer MEDICAID, SELFPAY ==
--- NOTE | 2023-10-15 13:38 | RAD_ITS ---
STUDY: X-RAY - CERVICAL SPINE REASON FOR EXAM: Male, 28 years old. ARM NUMBNESS AND TINGLING TECHNIQUE: 5 view(s) of the cervical spine were obtained. COMPARISON: None FINDINGS: Normal anterior atlantoaxial articulation. Normal odontoid process. There is straightening of the normal cervical lordosis. Normal vertebral bodies and endplates. Normal disc space heights. Normal visualized intervertebral neuroforamina. The soft tissue structures are unremarkable. RAD/Cerv Spine 4 or 5 Views IMPRESSION: Normal x-ray examination of the visualized cervical spine. Electronically Signed: Adam Godinez MD at 22:58 EDT ,
--- NOTE | 2023-10-15 13:39 | RAD_ITS ---
STUDY: X-RAY - LEFT SHOULDER REASON FOR EXAM: Male, 28 years old. ARM NUMBNESS AND TINGLING TECHNIQUE: 4 views of the left shoulder. COMPARISON: None. FINDINGS: Normal glenohumeral articulation. There is mild acromioclavicular arthrosis. Normal acromion. Normal humeral head and visualized proximal humerus. The soft tissue structures are unremarkable. There is no demonstrated fracture. Normal visualized pulmonary apex. RAD/Shoulder min 2 Views IMPRESSION: Mild acromioclavicular arthrosis. No demonstrated fracture. Electronically Signed: Fernandez Crump MD at 14:17 EDT ,
--- NOTE | 2023-10-15 13:39 | RAD_ITS ---
STUDY: X-RAY - LEFT ELBOW REASON FOR EXAM: Male, 28 years old. ARM NUMBNESS AND TINGLING TECHNIQUE: 3 views of the left elbow. COMPARISON: None. FINDINGS: Normal visualized humerus, radius and ulna. Normal radiocapitellar and ulnotrochlear articulations. The soft tissue structures are unremarkable. There is no demonstrated fracture. RAD/Elbow min 3 Views IMPRESSION: Normal x-ray examination of the left elbow. Electronically Signed: Fernandez Crump MD at 14:23 EDT ,
== END | disposition home or self-care (01) ==
LOC: MTRAD 13:36
PROVIDERS: PCP Family Medicine; Referring Provider Nurse Practitioner Family; Visit Provider Nurse Practitioner Family
DX: R20.2 Paresthesia of skin (principal); R20.0 Anesthesia of skin
CPT/HCPCS: 72050; 73030; 73080

== ENCOUNTER → 2023-11-03 | Outpatient (CLI) | payer MEDICAID, SELFPAY ==
--- NOTE | 2023-11-03 15:15 | NEURO ---
NCS and/or EMG Patient Report Ordering Doctor: Serina Rhoades DATE OF SERVICE: 11/03/23 Hayden presents for electrodiagnostic testing of the left upper limb. He reports numbness and tingling in the left hand. Electrodiagnostic findings: Left median motor nerve demonstrates normal distal latency, amplitude and conduction velocity. Left ulnar motor response is within normal limits, including conduction across the elbow. Normal left-sided sensory responses. Needle EMG testing was performed the left upper limb. All muscles tested showed no evidence of denervation with normal motor unit action potentials. Electrodiagnostic impression: This is a normal electrodiagnostic study of the left upper limb. There is no electrodiagnostic evidence for peripheral neuropathy, including carpal tunnel or cubital tunnel syndrome. There is no electrodiagnostic evidence for cervical radiculopathy. Multi Select Codes Neurology Neurology Interp Codes: 65880-13 Musc test done w/n test comp (interp) and 38901-20 Nrv cndj test 7-8 studies (interp)
== END | disposition home or self-care (01) ==
PROVIDERS: PCP Family Medicine; Referring Provider Nurse Practitioner Family; Visit Provider Nurse Practitioner Family
DX: R20.2 Paresthesia of skin (principal)
CPT/HCPCS: 95886; 95910

== ENCOUNTER 2023-11-15 11:47 | Outpatient (RCR) | payer MEDICAID, SELFPAY | END 2023-11-15 19:00 | disposition home or self-care (01) | LOC: PT 11:47 | PROVIDERS: PCP Family Medicine; Referring Provider Anesthesiology; Visit Provider Anesthesiology | DX: M47.816 Spondylosis without myelopathy or radiculopathy, lumbar region (principal); M47.814 Spondylosis without myelopathy or radiculopathy, thoracic region; M25.512 Pain in left shoulder | CPT/HCPCS: 97110; 97162 ==

== ENCOUNTER → 2023-11-18 | Outpatient (CLI) | payer MEDICAID, SELFPAY | END | disposition home or self-care (01) | LOC: PSN 09:53 | PROVIDERS: PCP Family Medicine; Referring Provider Internal Medicine Critical Care Medicine; Visit Provider Internal Medicine Critical Care Medicine | DX: R94.2 Abnormal results of pulmonary function studies (principal) | CPT/HCPCS: 94060; 94729 ==

== ENCOUNTER 2024-01-27 15:51 | Outpatient (CLI) | payer MEDICAID, SELFPAY ==
[2024-01-27 17:59] LABS: Absolute Lymphocyte Count 2.65 X10^3/uL (0.83-4.51); Absolute Neutrophil Count 6.4 X10^3/uL (2.0-7.7); Basophil# 0.05 X10^3/uL; Basophil% 0.5 % (0-1); Eosinophil# 0.12 X10^3/uL; Eosinophils% 1.2 % (0-5); Hematocrit 37.6 % (40-54); Hemoglobin 12.7 g/dL (13.0-16.5); Lymphocyte # 2.65 X10^3/ul (0.83-4.51); Lymphocyte % 26.3 % (19-41); Mean Corp Hgb Conc 33.8 g/dL (32-36); Mean Corpuscular Hgb 27.9 pg (27.0-32.0); Mean Corpuscular Volume 82.6 fL (80-94); Mean Platelet Vol. 9.2 fl (6.2-12.0); Monocyte# 0.79 X10^3/uL; Monocyte% 7.9 % (0-10); NRBC Flagged by Analyzer 0 % (0-5); Neutrophil # 6.42 X10^3/uL (2.7-7.7); Neutrophil % 63.8 % (47-70); Platelet Count 253 K/mm3 (150-450); RBC Distribution Width SD 38.8 fl (35.1-43.9); Red Blood Count 4.55 M/mm3 (4.6-6.2); White Blood Count 10.1 K/mm3 (4.4-11.0)
[2024-01-27 18:32] LABS: Hemoglobin A1c 5.4 % (3.8-5.6)
[2024-01-27 18:40] LABS: ALB/GLOB Ratio 0.7 RATIO (0.9-2.4); AST(SGOT) 16 U/L (15-37); Alanine Aminotransfer ALT/SGPT 28 U/L (16-61); Albumin, Serum 3.2 g/dL (3.2-5.0); Alkaline Phosphatase 70 U/L (45-117); Anion Gap 4 (5-15); BUN 11 mg/dL (7-18); BUN/Creat Ratio 15.2 RATIO (10-20); Calcium,Total 9.2 mg/dL (8.5-10.1); Chloride 107 mmol/L (98-107); Cholesterol 179 mg/dL (200); Creatinine, Serum 0.73 mg/dL (0.70-1.30); EST Glomerular Filtration Rate 134 mL/min (>60); Est Glom Filt Rate - Afr Amer 162 mL/min (>60); Globulin 4.3 g/dL (2.2-4.2); Glucose 102 mg/dL (74-106); High Density Lipoprotein 32 mg/dL; Protein, Total 7.5 g/dL (6.4-8.2); Sodium Level 139 mmol/L (136-145); T4 Free Direct 1.05 ng/dL (0.76-1.46); Triglycerides 80 mg/dL; Very Low Density Lipoprotein 16 mg/dL (5-40)
[2024-01-29 08:12] LABS: Insulin Level 25.5 uIU/mL (2.6-24.9)
== END 2024-01-27 23:59 | disposition home or self-care (01) ==
PROVIDERS: PCP Family Medicine
DX: E16.1 Other hypoglycemia (principal)
CPT/HCPCS: 36415; 80053; 80061; 83036; 83525; 84439; 84443; 85025

== ENCOUNTER → 2024-07-07 | Outpatient (CLI) | payer MEDICAID, SELFPAY ==
--- NOTE | 2024-07-07 12:29 | US_ITS ---
PROCEDURE: THYROID REASON FOR EXAM: NONTOXIC SINGLE THYROID NODULE TECHNIQUE: Thyroid ultrasound COMPARISON: Comparison is made with prior study dated January 30, 2022. FINDINGS: Right thyroid lobe measures 5.5 cm x 1.8 cm x 1.5 cm. Left thyroid lobe measures 5.4 cm x 2.2 cm x 1.6 cm. Isthmus thickness is4.1 mm. Thyroid Size: Mild enlargement of the right and left lobe of the thyroid gland. Background Echotexture: Heterogeneous Thyroid Nodules: There is a 1.2 cm x 1 cm x 0.7 cm complex cyst in the inferior aspect of the left lobe of the thyroid. This is essentially unchanged. US/Thyroid IMPRESSION: Mildly enlarged thyroid gland with a complex cyst in the left lobe of the thyro id as described. Stable examination. Reading Location: [place] [id number]
== END | disposition home or self-care (01) ==
LOC: US 12:28
PROVIDERS: PCP Family Medicine
DX: E04.1 Nontoxic single thyroid nodule (principal)
CPT/HCPCS: 76536

== ENCOUNTER → 2024-07-17 | Outpatient (CLI) | payer MEDICAID, SELFPAY | END | disposition home or self-care (01) | LOC: SL 20:21 | PROVIDERS: PCP Family Medicine; Referring Provider Nurse Practitioner Family; Visit Provider Nurse Practitioner Family | DX: G47.33 Obstructive sleep apnea (adult) (pediatric) (principal) | CPT/HCPCS: 95811 ==

== ENCOUNTER → 2024-07-25 | Outpatient (CLI) | payer MEDICAID, SELFPAY ==
[2024-07-25 18:15] LABS: Absolute Lymphocyte Count 2.71 X10^3/uL (0.83-4.51); Absolute Neutrophil Count 7.6 X10^3/uL (2.0-7.7); Basophil# 0.05 X10^3/uL; Basophil% 0.4 % (0-1); Eosinophil# 0.13 X10^3/uL; Eosinophils% 1.1 % (0-5); Hematocrit 39.5 % (40-54); Hemoglobin 13.4 g/dL (13.0-16.5); Lymphocyte # 2.71 X10^3/ul (0.83-4.51); Lymphocyte % 23.7 % (19-41); Mean Corp Hgb Conc 33.9 g/dL (32-36); Mean Corpuscular Volume 82.5 fL (80-94); Mean Platelet Vol. 9.4 fl (6.2-12.0); Monocyte# 0.93 X10^3/uL; Monocyte% 8.1 % (0-10); NRBC Flagged by Analyzer 0 % (0-5); Neutrophil # 7.57 X10^3/uL (2.7-7.7); Neutrophil % 66.4 % (47-70); Platelet Count 264 K/mm3 (150-450); RBC Distribution Width CV 12.8 % (11.6-14.6); RBC Distribution Width SD 38.5 fl (35.1-43.9); Red Blood Count 4.79 M/mm3 (4.6-6.2); White Blood Count 11.4 K/mm3 (4.4-11.0)
[2024-07-25 21:30] LABS: ALB/GLOB Ratio 1.1 RATIO (0.9-2.4); AST(SGOT) 19 U/L (<=37); Alanine Aminotransfer ALT/SGPT 17 U/L (<=46); Albumin, Serum 3.8 g/dL (3.5-5.0); Alkaline Phosphatase 71 U/L (40-129); Anion Gap 14 (5-15); BUN 12 mg/dL (4-19); Calcium,Total 9.2 mg/dL (7.6-11.0); Carbon Dioxide 22.4 mmol/L (21.0-32.0); Chloride 102 mmol/L (98-108); Creatinine, Serum 0.76 mg/dL (0.70-1.20); EST Glomerular Filtration Rate 123 (>60); Globulin 3.6 g/dL (2.2-4.2); Glucose 156 mg/dL (70-99); Potassium 3.6 mmol/L (3.3-5.1); Protein, Total 7.5 g/dL (5.9-8.4); Sodium Level 138 mmol/L (133-145); Total Bilirubin 0.37 mg/dL (0.00-1.30)
[2024-07-25 21:34] LABS: Hemoglobin A1c 5.8 % (<=5.6)
== END | disposition home or self-care (01) ==
LOC: MTLAB 15:38
PROVIDERS: PCP Nurse Practitioner Family; Referring Provider Nurse Practitioner Family; Visit Provider Nurse Practitioner Family
DX: E16.1 Other hypoglycemia (principal)
CPT/HCPCS: 36415; 80053; 83036; 83525; 84439; 84443; 85025

== ENCOUNTER → 2025-02-07 | Outpatient (CLI) | payer MEDICAID, SELFPAY ==
[2025-02-07 15:27] LABS: AST(SGOT) 18 U/L (<=37); Alanine Aminotransfer ALT/SGPT 22 U/L (<=46); Albumin, Serum 4.0 g/dL (3.5-5.0); Alkaline Phosphatase 69 U/L (40-129); Anion Gap 11 (5-15); BUN 13 mg/dL (4-19); BUN/Creat Ratio 18.0 RATIO (10-20); Calcium,Total 9.1 mg/dL (7.6-11.0); Carbon Dioxide 24.3 mmol/L (21.0-32.0); Chloride 105 mmol/L (98-108); Cholesterol 192 mg/dL (<=200); Globulin 3.5 g/dL (2.2-4.2); Glucose 131 mg/dL (70-99); Low Density Lipoprotein Calc. 125 mg/dL; Potassium 4.0 mmol/L (3.3-5.1); Triglycerides 185 mg/dL; Very Low Density Lipoprotein 37 mg/dL (5-40); cholesterol:hdl ratio screen 6.32
== END | disposition home or self-care (01) ==
LOC: MTLAB 11:52
PROVIDERS: PCP Nurse Practitioner Family; Referring Provider Nurse Practitioner Family; Visit Provider Nurse Practitioner Family
DX: E04.1 Nontoxic single thyroid nodule (principal); E16.1 Other hypoglycemia
CPT/HCPCS: 36415; 80053; 80061; 83036; 83525; 84439; 84443